=== PATIENT | female | born 1965 | race Caucasian/White ===

== ENCOUNTER 2021-11-19 20:36 | Inpatient (IN) | payer OTHER, SELFPAY ==
[2021-11-19 20:38] VITALS: BP 209/113; PULSE 91; RESP 18; TEMP 36.8; O2SAT 94; BMI 31.3
--- NOTE | 2021-11-19 21:41 | ED_ITS ---
HPI - General Adult General: Chief complaint: Nausea/Vomiting/Diarrhea Stated complaint: N/V Time Seen by Provider: 11/19/21 21:35 History of Present Illness: Patient is a 66-year-old female history gastroparesis, daily marijuana use presenting to the emergency room with complaints of nausea/vomiting and diarrhea since this morning. Patient tells me that she has been having nonstop vomiting diffuse abdominal pain and diarrhea since this morning. Patient says that this is very similar to her previous diagnosis of gastroparesis flare when. Patient also reports chills. Patient denies any cough, runny nose sore throat, chest pain or shortness of breath. Onset:earlier today Duration:ongoing Location:home Severity:moderate Associated symptoms: Reports nausea and vomiting; Deny chest pain, dyspnea, rash or palpitations Review of Systems Const: Reports: chills; Denies: fever(s) Eyes: Denies: change in vision ENMT: Denies: mouth pain Card: Denies: chest pain or palpitations Resp: Denies: dyspnea or non-productive cough GI: Reports: abdominal pain, nausea, vomiting and diarrhea : Denies: dysuria Musc: Denies: extremity pain Skin/Breast: Denies: rash or new lesions Neuro: Denies: weakness in extremities Psych: Reports: other (Normal mood) Abdulaziz/Lymph: Denies: easy bruising PFS ED PFSH: Medical History (Updated 11/22/21 @ 00:01 by ) Gastroparesis Social History Smoking and tobacco status: never smoked Alcohol intake: never Physical Exam Const: COMMON NORMALS: alert HENMT: COMMON NORMALS: atraumatic HEAD & SCALP: atraumatic MOUTH: moist mucous membranes abnormal Eye: COMMON NORMALS: EOMs intact bilaterally and conjunctivae normal CONJUNCTIVA: Yes conjunctivae normal Neck/C-Spine: COMMON NORMALS: full ROM and supple Resp: COMMON NORMALS: normal respiratory effort and clear to auscultation bilaterally AUSCULTATION: clear to auscultation bilaterally Cardio: COMMON NORMALS: regular rate RATE: regular rate GI: COMMON NORMALS: Soft to palpation and non-tender PALPATION: Yes Soft to palpation OTHER: No focal TTP. NO guarding rebound, guarding, rigidity. No CVA tenderness to percussion. Neg Barron/Neg McBurney's point tenderness, no suprabupic tenderness to palpation. Extremity: COMMON NORMALS: full ROM Neuro: SENSORIUM/ORIENTATION: Yes alert MOTOR EXAM: No Abnormal motor strength present and Other motor observations present (no focal motor deficits) Psych: COMMON NORMALS: speech normal SPEECH: Yes normal speech MOOD & AFFECT: Yes euthymic mood Course Vital Signs: Vital signs: Vital Signs Temperature 97.6 F 11/21/21 15:02 Pulse Rate 63 11/21/21 15:02 Respiratory Rate 18 11/21/21 15:02 Blood Pressure 126/67 11/21/21 15:02 Pulse Oximetry 98 11/21/21 15:02 Oxygen Delivery Me thod 11/21/21 12:00 MDM - General Adult Medical Decision Making Patient is a 66-year-old female with history of gastroparesis presenting to the emergency room for concerns of nausea/vomiting abdominal pain and diarrhea. On physical exam, patient does not have any focal tenderness palpation. Patient is noted to be dry and in mild distress. Hemodynamically stable. No guarding no rebound tenderness. Patient is noted to have a white count 6.8. Patient is hemoconcentrated 16.7. Patient received 2 L of fluid, Zofran and Reglan and still continues to complains of symptoms of nausea and inability to tolerate p.o. COVID antigen pending. CT scan pending. Disposition: admission Lab Data : 11/21/21 07:58 11/21/21 10:06 Radiology Impressions Abdomen/Pelvis CT 11/19/21 22:29 IMPRESSION: The images are degraded due to motion artifact. Within this limitation: 1. Distended stomach containing fluid with air-fluid level. Thickening of the reed of the pylorus. 2. Thickening of the reed of the colon can be seen with colitis in the appropriate clinical setting. 3. Mild hepatomegaly and fatty changes of the liver. 4. Vascular atherosclerosis. 5. Spondylosis. COMMENTS: Consistent with the [employer]'s Incidental Findings Committee white paper (J Am Chapis Radiol 2018): Any incidental renal lesion less than 1 cm or classified as too small to characterize, or any incidental cystic renal lesion characterized as simple-appearing, is likely benign. No follow-up imaging is recommended for these lesions per consensus recommendations based on imaging criteria. Laboratory Results WBC 6.8 10^3/uL (4.0-10.0) 07/25/22 21:47 RBC 5.35 10^6/uL (4.1-5.3) H 11/19/21 21:47 Hgb 16.7 g/dL (11.5-15.3) H 11/19/21 21:47 Hct 47.5 % (37.0-47.0) H 11/19/21 21:47 MCV 88.8 fl (81-99) 11/19/21 21:47 MCH 31.2 pg (28.0-34.0) 11/19/21 21:47 MCHC 35.2 g/dL (30.0-36.0) 11/19/21 21:47 RDW 12.7 % (12.1-15.1) 11/19/21 21:47 Plt Count 122 10^3/cmm (130-400) L 11/19/21 21:47 MPV 11.2 fL (7.4-10.4) H 11/19/21 21:47 Neut % (Auto) 84.7 % 11/19/21 21:47 Lymph % (Auto) 11.5 % 11/19/21 21:47 [place] % (Auto) 2.8 % 11/19/21 21:47 Eos % (Auto) 0.3 % 11/19/21 21:47 Baso % (Auto) 0.3 % 11/19/21 21:47 Neut # (Auto) 5.72 10^3/uL (1.8-7.7) 11/19/21 21:47 Lymph # (Auto) 0.8 10^3/uL (0.8-4.8) 11/19/21 21:47 [place] # (Auto) 0.2 10^3/uL (0.2-0.9) 11/19/21 21:47 Eos # (Auto) 0.0 10^3/uL (0.0-0.8) 11/19/21 21:47 Baso # (Auto) 0.0 10^3/uL (0.0-0.1) 11/19/21 21:47 Nucleated RBC % (auto) 0 % 11/19/21 21: Nucleated RBCs # 0.0 /100WBC 11/19/21 21:47 Sodium 141 mmol/L (136-145) 11/19/21 21:47 Potassium 4.2 mmol/L (3.5-5.1) 11/19/21 21:47 Chloride 104 mmol/L (98-107) 11/19/21 21:47 Carbon Dioxide 22 mmol/L (22-29) 11/19/21 21:47 Anion Gap 19.2 (5-19) H 11/19/21 21:47 BUN 18 mg/dL (8-23) 11/19/21 21:47 Creatinine 0.6 mg/dL (0.5-0.9) 11/19/21 21:47 GFR Calculation 99.7 mL/min (90-130) 11/19/21 21:47 Glucose 290 mg/dL (65-115) H 11/19/21 21:47 Calculated Osmolality 305 mOsm/kg (285-295) H 11/19/21 21:47 Calcium 9.7 mg/dL (8.5-10.5) 11/19/21 21:47 Total Bilirubin 1.1 mg/dL (0.15-1.2) 11/19/21 21:47 AST 27 U/L (0-32) 11/19/21 21:47 ALT 34 U/L (0-33) H 11/19/21 21:47 Alkaline Phosphatase 90 IU/L (35-105) 11/19/21 21:47 Troponin T Baseline 24 ng/L (0-10) H 11/20/21 00:58 Total Protein 7.3 g/dL (6.6-8.7) 11/19/21 21:47 Albumin 5.2 g/dL (3.5-5.2) 11/19/21 21:47 Globulin 2.1 g/dL (1.3-4.6) 11/19/21 21:47 Lipase 16 U/L (13-60) 11/19/21 21:47 Urine Color Yellow (Yellow) 11/19/21 22:25 Urine Appearance Sl hazy (CLEAR) 11/19/21 22:25 Urine pH 6 (5-7) 11/19/21 22:25 Ur Specific [place] 1.020 (1.005-1.030) 11/19/21 22:25 Urine Protein Neg (Negative) 11/19/21 22:25 Urine Glucose (UA) 4+ (Normal) H 11/19/21 22:25 Urine Ketones 2+ (Negative) H 11/19/21 22:25 Urine Blood 2+ (Negative) H 11/19/21 22:25 Urine Nitrate Positive (Negative) H 11/19/21 22:25 Urine Bilirubin Neg (Negative) 11/19/21 22:25 Urine Urobilinogen Norm mg/dL (Negative) 11/19/21 22:25 Ur Leukocyte Esterase Negative (Negative) 11/19/21 22:25 Urine RBC 0-4 /hpf (0-2) H 11/19/21 22:25 Urine WBC 0-4 /hpf (0-5) H 11/19/21 22:25 Ur Squamous Epith Cells 0-4 /hpf (0-5) H 11/19/21 22:25 Amorphous Sediment Not Reportable 11/19/21 22:25 Urine Bacteria 4+ /hpf (NONE) H 11/19/21 22:25 SARS-CoV-2 Ag (Rapid) Negative (Negative) 11/19/21 23:40 Discharge Plan Discharge Patient Disposition: Placed in Observation Admit Provider: Beatrice Jaquez Clinical Impression: Nausea & vomiting, Diarrhea, Acute cystitis, Hypertension Discharge Diet: Advance as tolerated Discharge Activity: Increase activity as tolerated Coding Level of Care Code ED Media Consultant Outside Sales for Chg Fwd Exam Comprehensive
[2021-11-19] MEDS: ondansetron 2 mg/ML SDV 2 mL 4 MG IVP (21:45)
[2021-11-19] MEDS: sodium chloride 0.9% 1,000 ML 999 ML IV ×2 (21:45→23:47)
[2021-11-19 21:55] LABS: Basophils % 0.3 %; Eosinophils % 0.3 %; Hematocrit 47.5 % (37.0-47.0); Hemoglobin 16.7 g/dL (11.5-15.3); Lymphocytes # 0.8 10^3/uL (0.8-4.8); Lymphocytes % 11.5 %; Mean Corpuscular HGB Conc 35.2 g/dL (30.0-36.0); Mean Corpuscular Hemoglobin 31.2 pg (28.0-34.0); Mean Corpuscular Volume 88.8 fl (81-99); Mean Platelet Volume 11.2 fL (7.4-10.4); Monocytes # 0.2 10^3/uL (0.2-0.9); Monocytes % 2.8 %; Neutrophils # 5.72 10^3/uL (1.8-7.7); Neutrophils % 84.7 %; Nucleated Red Blood Cells % 0 %; Platelet Count 122 10^3/cmm (130-400); Red Blood Count 5.35 10^6/uL (4.1-5.3); Red Cell Distribution Width 12.7 % (12.1-15.1); White Blood Count 6.8 10^3/uL (4.0-10.0)
[2021-11-19 22:22] LABS: Alanine Aminotransferase 34 U/L (0-33); Albumin Level 5.2 g/dL (3.5-5.2); Alkaline Phosphatase 90 IU/L (35-105); Anion Gap 19.2 (5-19); Aspartate Amino Transferase 27 U/L (0-32); Blood Urea Nitrogen 18 mg/dL (8-23); Calcium 9.7 mg/dL (8.5-10.5); Carbon Dioxide 22 mmol/L (22-29); Chloride 104 mmol/L (98-107); Globulin 2.1 g/dL (1.3-4.6); Glomerular Filtration Rate 99.7 mL/min (90-130); Glucose 290 mg/dL (65-115); Lipase 16 U/L (13-60); Osmolality Calculated 305 mOsm/kg (285-295); Potassium 4.2 mmol/L (3.5-5.1); Sodium 141 mmol/L (136-145); Total Bilirubin 1.1 mg/dL (0.15-1.2); Total Protein 7.3 g/dL (6.6-8.7)
--- NOTE | 2021-11-19 22:29 | CTR_ITS ---
PROCEDURE INFORMATION: Exam: CT Abdomen And Pelvis With Contrast Exam date and time: 11/19/2021 10:51 PM Age: 66 years old Clinical indication: Pain and condition or disease; Other: Gastroparesis; Abdominal pain; Prior surgery; Surgery date: 6+ months; Surgery type: Gb; Additional info: Diffuse abd, HX of gastroparesis TECHNIQUE: Imaging protocol: Computed tomography of the abdomen and pelvis with contrast. Radiation optimization: All CT scans at this facility use at least one of these dose optimization techniques: automated exposure control; mA and/or kV adjustment per patient size (includes targeted exams where dose is matched to clinical indication); or iterative reconstruction. Contrast material: OMNIPAQUE 350; Contrast volume: 90 ml; Contrast route: INTRAVENOUS (IV); COMPARISON: No relevant prior studies available. RADIATION DOSE METRICS: Total DLP (mGy-cm): 1135.09 FINDINGS: Lungs: The imaged portions of the lungs appear grossly clear. Suspected minimal background emphysema. No pleural effusion. Heart: The imaged portions of the heart appear grossly unremarkable. No pericardial effusion. Mediastinal space: Patulous lower esophagus with suspected small hiatal hernia. Liver: There are fatty changes of the liver. Mild hepatomegaly. No hepatic focal lesions. No intrahepatic or significant extrahepatic biliary duct dilation. Gallbladder and bile ducts: The gallbladder has been surgically removed. Pancreas: The pancreas appears grossly unremarkable. Spleen: The spleen appears grossly unremarkable. Adrenal glands: Mild thickening of the left adrenal gland. The adrenal glands appear otherwise grossly unremarkable. Kidneys and ureters: Small exophytic cyst in the right kidney. No hydronephrosis. No calcified renal stones. Stomach and bowel: The stomach contains foot particles and fluid with air-fluid level. Mild thickening of the gastric wall near the pylorus. The small bowel contains fluid. No small bowel obstruction. The large bowel contains fecal matter and gasses. Scattered colonic diverticula without CT evidence of acute diverticulitis. Mild thickening of the large bowel reed, particularly in the sigmoid region can represent colitis in the appropriate clinical setting. Appendix: No evidence of appendicitis. Intraperitoneal space: Unremarkable. No free air. No significant fluid collection. Vasculature: Unremarkable. No abdominal aortic aneurysm. Lymph nodes: Unremarkable. No enlarged lymph nodes. Urinary bladder: There are bladder is distended and appears grossly unremarkable. Reproductive: The torus and adnexa appear grossly unremarkable. Bones/joints: Advanced degenerative changes of the lumbosacral spine. Suspected multilevel spinal canal stenosis and neural foraminal stenosis with associated advanced advanced arthropathy are suspected. Evaluation is however limited due to significant motion artifacts. There are degenerative changes of the SI joints. Soft tissues: Unremarkable. Other findings: The images are degraded due to motion artifacts. Within this limitation: CT/CT abdomen pelvis w con* [id number] IMPRESSION: The images are degraded due to motion artifact. Within this limitation: 1. Distended stomach containing fluid with air-fluid level. Thickening of the reed of the pylorus. 2. Thickening of the reed of the colon can be seen with colitis in the appropriate clinical setting. 3. Mild hepatomegaly and fatty changes of the liver. 4. Vascular atherosclerosis. 5. Spondylosis. COMMENTS: Consistent with the [employer]'s Incidental Findings Committee white paper (J Am Chapis Radiol 2018): Any incidental renal lesion less than 1 cm or classified as too small to characterize, or any incidental cystic renal lesion characterized as simple-appearing, is likely benign. No follow-up imaging is recommended for these lesions per consensus recommendations based on imaging criteria.
[2021-11-19] MEDS: metoclopramide 5 mg/mL SDV 2 mL IVP (22:37)
[2021-11-19 22:49] LABS: Add Urine Microscopic? YES; Bilirubin Urine Neg (Negative); Blood Urine 2+ (Negative); Glucose Urine UA 4+ (Normal); Ketones Urine 2+ (Negative); Leukocyte Esterase Urine Negative (Negative); Nitrate Urine Positive (Negative); Protein Urine Neg (Negative); Urine Appearance SL Hazy (CLEAR); Urine Color Yellow (Yellow); Urobilinogen Urine Norm (Negative); pH Urine 6 (5-7)
[2021-11-19 22:50] LABS: Add Urine Culture? Yes; Bacteria Urine 4+ /hpf; RBC Urine 0-4 /hpf (0-2); Squamous Epithelial Cell Urine 0-4 /hpf (0-5); WBC Urine 0-4 /hpf (0-5)
[2021-11-19] MEDS: iohexol 350 mg/mL 100 mL Btl IV (22:56)
[2021-11-19] MEDS: ketorolac 30 mg/mL INJ IVP (23:05)
[2021-11-19] MEDS: cefTRIAXone 1,000 MG in sodium chloride 0.9% (plus) 50 ML 100 MG IV (23:06)
[2021-11-19 23:16] VITALS: BP 205/92; PULSE 68; O2SAT 100
[2021-11-20] VITALS (8 sets, daily range): BP systolic 170–212; BP diastolic 62–96; PULSE 63–89; RESP 16–20; TEMP 36.5–37.4; O2SAT 97–100
[2021-11-20 00:09] LABS: SARS Covid-2 Antigen Negative (Negative)
[2021-11-20] MEDS: haloperidol inj 5 mg/mL INJ 1 mL IM (00:52)
[2021-11-20] MEDS: hyDRALAzine 20 mg/mL INJ 1 mL 10 MG IVP (01:05)
[2021-11-20 01:30] LABS: Troponin(5th) Baseline 24 ng/L (0-10)
--- NOTE | 2021-11-20 01:59 | PC.NURSE ---
Upon admission pt unable to name her home medications or pharmacy.
[2021-11-20] MEDS: labetalol 5 mg/mL SDV 20mL 10 MG IVP (02:22)
--- NOTE | 2021-11-20 02:45 | ECG_ITS ---
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 Measurements Intervals [place] Rate: 80 P: 42 WI: 187 QRS: 46 QRSD: 88 T: 65 QT: 382 QTc: 443 Interpretive Statements SINUS RHYTHM WITH MARKED SINUS ARRHYTHMIA SEPTAL MYOCARDIAL INFARCTION , OF INDETERMINATE AGE [40+ ms Q WAVE IN V1/V2] No previous ECG available for comparison Electronically Signed On 11-21-2021 16:31:37 CDT by Satnam Patel M.D. [id number]
--- NOTE | 2021-11-20 02:48 | PC.NURSE ---
Thom RT made aware of pt needing EKG
--- NOTE | 2021-11-20 04:04 | P.HP_ITS ---
Providers/Chief Complaint Admitting Physician: Beatrice Jaquez MD Chief Complaint: N/V History of Present Illness Ana Maria Hale is a 66 year old female with a past medical history of diabetes, insulin-dependent and hypertension, known gastroparesis presenting today with multiple episodes of vomiting, and 7-8 episodes of diarrhea. C omplains of nausea and abdominal pain present. Denies any fever chills. Denies any URI symptoms cough etc. CT of the abdomen performed in the ER shows evidence of distended dilated stomach. Additionally noted to have blood pressure of 212 systolic, not currently relieved after receiving IV push of hydralazine. Review of Systems General: Reports: 10 or more systems reviewed and unremarkable except in HPI and below Const: Denies: fever(s), chills or body aches Eyes: Denies: change in vision, blurry vision or photophobia ENMT: Reports: hoarseness; Denies: throat pain, enlarged tonsils, odynophagia or nasal congestion Card: Denies: chest pain, palpitations, irregular heart rhythm, edema, sw elling of feet/ankles, lightheadedness, pre-syncope, dyspnea on exertion or orthopnea Resp: Denies: dyspnea, productive cough, non-productive cough, wheezing, stridor, pain on inspiration, change in phlegm color, hemoptysis or chest congestion GI: Denies: abdominal pain, nausea, vomiting, hematemesis, coffee ground emesis, dysphagia, heartburn, diarrhea, constipation, GI cramping, change in stool character, hematochezia or melena : Denies: flank pain, difficulty voiding, dysuria, urinary frequency, urin [place] urgency, urinary hesitancy or hematuria Musc: Denies: neck pain, back pain, extremity pain, joint swelling, joint warmth or deformity Neuro: Denies: headache(s), numbness in extremities, weakness in extremities, sensory changes, difficulty walking, frequent falls, dizziness, vertigo, behavioral changes, Slurred speech present or seizure-like activity Psych: Denies: anxiety, depression, suicidal ideation or homicidal ideation Endo: Denies: polyuria, polydipsia, tired all the time, cold intolerance or hot flashes Abdulaziz/Lymph: Denies: easy bruising or easy bleeding Medications/Allergies Allergies Allergy/AdvReac Type Severity Reaction Status Date / Time dicyclomine [From Bentyl] Allergy ALGY-Rash Verified 11/20/21 01:29 PFSH Acute PFSH: Medical History (Updated 11/20/21 @ 07:42 by Beatrice Jaquez MD) Gastroparesis Social History Smoking and tobacco status: never smoked Alcohol intake: never Substance/Drug Use: current Other substance/drug use details: +marijuana Vitals/I&O/Wt Last Vital Signs Temp 98.3 F 11/19/21 20:38 Pulse 76 11/20/21 02:13 Resp 20 H 11/20/21 01:18 BP 212/91 11/20/21 01:18 Pulse Ox 99 11/20/21 01:18 11/19/21 11/19/21 11/20/21 14:59 22:59 06:59 Intake Total 0 / 2050 Output Total 400 / 400 Balance 1650 / 1650 Weight last 48 hrs Weight 105.687 kg Weight 90.718 kg Physical Exam Narrative: GEN: Awake, alert and oriented, no acute distress CVS: S1S2 N RS: CTA B/L Abd: Soft, nt/nd , bs+ 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 Within this limitation: 1. Distended stomach containing fluid with air-fluid level. Thickening of the reed of the pylorus. 2. Thickening of the reed of the colon can be seen with colitis in the appropriate clinical setting. 3. Mild hepatomegaly and fatty changes of the liver. 4. Vascular atherosclerosis. 5. Spondylosis. COMMENTS: Consistent with the [employer]'s Incidental Findings Committee white paper (J Am Chapis Radiol 2018): Any incidental renal lesion less than 1 cm or classified as too small to characterize, or any incidental cystic renal lesion characterized as simple-appearing, is likely benign. No follow-up imaging is recommended for these lesions per consensus recommendations based on imaging criteria. Laboratory Results WBC 6.8 10^3/uL (4.0-10.0) 11/19/21 21:47 RBC 5.35 10^6/uL (4.1-5.3) H 11/19/21 21:47 Hgb 16.7 g/dL (11.5-15.3) H 11/19/21 21:47 Hct 47.5 % (37.0-47.0) H 11/19/21 21:47 MCV 88.8 fl (81-99) 11/19/21 21:47 MCH 31.2 pg (28.0-34.0) 11/19/21 21:47 MCHC 35.2 g/dL (30.0-36.0) 11/19/21 21:47 RDW 12.7 % (12.1-15.1) 11/19/21 21:47 Plt Count 122 10^3/cmm (130-400) L 11/19/21 21:47 MPV 11.2 fL (7.4-10.4) H 11/19/21 21:47 Neut % (Auto) 84.7 % 11/19/21 21:47 Lymph % (Auto) 11.5 % 11/19/21 21:47 [place] % (Auto) 2.8 % 11/19/21 21:47 Eos % (Auto) 0.3 % 11/19/21 21:47 Baso % (Auto) 0.3 % 11/19/21 21:47 Neut # (Auto) 5.72 10^3/uL (1.8-7.7) 11/19/21 21:47 Lymph # (Auto) 0.8 10^3/uL (0.8-4.8) 11/19/21 21:47 [place] # (Auto) 0.2 10^3/uL (0.2-0.9) 11/19/21 21:47 Eos # (Auto) 0.0 10^3/uL (0.0-0.8) 11/19/21 21:47 Baso # (Auto) 0.0 10^3/uL (0.0-0.1) 11/19/21 21:47 Nucleated RBC % (auto) 0 % 11/19/21 21:47 Nucleated RBCs # 0.0 /100WBC 11/19/21 21:47 Sodium 141 mmol/L (136-145) 11/19/21 21:47 Potassium 4.2 mmol/L (3.5-5.1) 11/19/21 21:47 Chloride 104 mmol/L (98-107) 11/19/21 21:47 Carbon Dioxide 22 mmol/L (22-29) 11/19/21 21:47 Anion Gap 19.2 (5-19) H 11/19/21 21:47 BUN 18 mg/dL (8-23) 11/19/21 21:47 Creatinine 0.6 mg/dL (0.5-0.9) 11/19/21 21:47 GFR Calculation 99.7 mL/min (90-130) 11/19/21 21:47 Glucose 290 mg/dL (65-115) H 11/19/21 21:47 Calculated Osmolality 305 mOsm/kg (285-295) H 11/19/21 21:47 Calcium 9.7 mg/dL (8.5-10.5) 11/19/21 21:47 Total Bilirubin 1.1 mg/dL (0.15-1.2) 11/19/21 21:47 AST 27 U/L (0-32) 11/19/21 21:47 ALT 34 U/L (0-33) H 11/19/21 21:47 Alkaline Phosphatase 90 IU/L (35-105) 11/19/21 21:47 Troponin T Baseline 24 ng/L (0-10) H 11/20/21 00:58 Total Protein 7.3 g/dL (6.6-8.7) 11/19/21 21:47 Albumin 5.2 g/dL (3.5-5.2) 11/19/21 21:47 Globulin 2.1 g/dL (1.3-4.6) 11/19/21 21:47 Lipase 16 U/L (13-60) 11/19/21 21:47 Urine Color Yellow (Yellow) 11/19/21 22:25 Urine Appearance Sl hazy (CLEAR) 11/19/21 22:25 Urine pH 6 (5-7) 11/19/21 22:25 Ur Specific [place] 1.020 (1.005-1.030) 11/19/21 22:25 Urine Protein Neg (Negative) 11/19/21 22:25 Urine Glucose (UA) 4+ (Normal) H 11/19/21 22:25 Urine Ketones 2+ (Negative) H 11/19/21 22:25 Urine Blood 2+ (Negative) H 11/19/21 22:25 Urine Nitrate Positive (Negative) H 11/19/21 22:25 Urine Bilirubin Neg (Negative) 11/19/21 22:25 Urine Urobilinogen Norm mg/dL (Negative) 11/19/21 22:25 Ur Leukocyte Esterase Negative (Negative) 11/19/21 22:25 Urine RBC 0-4 /hpf (0-2) H 11/19/21 22:25 Urine WBC 0-4 /hpf (0-5) H 11/19/21 22:25 Ur Squamous Epith Cells 0-4 /hpf (0-5) H 11/19/21 22:25 Amorphous Sediment Not Reportable 11/19/21 22:25 Urine Bacteria 4+ /hpf (NONE) H 11/19/21 22:25 SARS-CoV-2 Ag (Rapid) Negative (Negative) 11/19/21 23:40 A&P Assessment and plan (1) Gastroparesis: Patient with history of diabetes mellitus and known gastroparesis presenting with multiple episodes of nausea vomiting and diarrhea. Findings may be related to gastroparesis. As needed Zofran, and Reglan if needed. Check stool C. difficile and bacterial PCR panel given diarrhea. Status: Acute (2) UTI (urinary tract infection): Ceftriaxone 1 g IV every 24 hours empirically Await urine culture CT abdomen without evidence of obstructive process. Status: Acute (3) Hypertension: Systolic blood pressure greater than 2 oh 12 upon presentation, not adequately relieved with hydralazine. Ordered labetalol 10 mg IV push and started on amlodipine 10 mg p.o. daily. Patient takes medications at home, however does not recall names of her medication at this present time. Check troponin series to evaluate for possible ACS given intractable vomiting and elevated blood pressure, EKG without acute ST-T wave changes at this time Status: Acute (4) Diabetes: Patient states she takes insulin at home, however unable to tell me dose right now. Will start on medium dose sliding scale for now and titrate as needed. Status: Acute Attestations 2 Medical Necessity Statement*: Anticipate greater than 2 midnight admission for management of gastroparesis, intractable nausea vomiting uncontrolled hypertensi on, IV hydration Coding Level of Care Code Acute Human Resources Benefits Coordinator for [facility] Fw Diagnoses Gastroparesis K31.84 UTI (urinary tract infection) N39.0 Hypertension I10 Diabetes E11.9
[2021-11-20] MEDS: sodium chloride 0.9% 1,000 ML 75 ML IV ×2 (04:32→17:17)
--- NOTE | 2021-11-20 06:45 | ECG_ITS ---
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 Measurements Intervals [place] Rate: 85 P: 42 [place]: 171 QRS: 30 QRSD: 101 T: 61 QT: 390 QTc: 465 Interpretive Statements SINUS RHYTHM WITH MARKED SINUS ARRHYTHMIA LEFT ATRIAL ENLARGEMENT [-0.15mV P-WAVE IN V1/V2] MODERATE ST DEPRESSION [0.05+ mV ST DEPRESSION] Compared to ECG 11/20/2021 03:01:15 Atrial abnormality now present ST (T wave) deviation now present Myocardial infarct finding no longer present Electronically Signed On 11-20-2021 12:10:10 CDT by Sujatha Allen M.D. [id number]
[2021-11-20] MEDS: amlodipine 10 mg Tablet PO (08:10)
[2021-11-20] MEDS: pantoprazole DR 40 mg Tablet PO (08:10)
[2021-11-20 08:15] LABS: Glucose Point of Care 252 mg/dL (70-110)
[2021-11-20] MEDS: insulin lispro 100 unit/1 mL SUBCUT ×4 (08:16→21:19)
--- NOTE | 2021-11-20 10:34 | PC.CHAP ---
Pastoral Care Encounter/Spiritual Assessment Type of Contact [] Declined wealth management consultant visit [] Patient/Family/Request visit [] Outpatient visit [] Follow-up visit [] Physician referral [] Code/Alert [x] Routine visit [] Staff referral [] Actively dying [x] Patient sleeping [] Family support [] [] Out of room [] Palliative care [] [] Receiving care in room [] Pre-surgical visit [] Trauma [] Long length of stay [] ICU visit [] Other: Relational/Emotional Strength [] Patient feels connected with others/family/visitors/staff [] Distress [] Loneliness/isolation [] Abandonment Spirituality of Patient [] Person of Veronique [] Attends Hindu of their Veronique [] Believes in Prayer [] Reads Bible or Sabianist materials [] There are Spiritual issues to be addressed Prototype Deicer Assembler Interventions [] Prayer [] Active listening [] Non-anxious presence [] Spiritual/emotional support [] Crisis/trauma care [] Spiritual counseling [] Bereavement support [] Provided bereavement packet [] Provided Bible/devotional materials [] Provided toy/stuffed animal, coloring book to patient or family member [] Provided Communion [] Anointing/[place] [] Salvation [] Completed spiritual assessment [] Other: Impact on Illness or Injury [] Angry [] Fearful [] Anxious [] Often cries [] Exhaustion [] Unable to work [] Unable to attend judaism [] Unable to walk/stand [] Unable to read [] Unable to drive [] Unable to eat/drink [] Unable to sleep [] Unable to be with family [] Patient intubated [] Other: Summary Time spent with patient
[2021-11-20] MEDS: hyDRALAzine 25 mg Tablet PO ×2 (10:45→17:18)
[2021-11-20 10:51] LABS: Glucose Point of Care 212 mg/dL (70-110)
--- NOTE | 2021-11-20 16:17 | P.PN_ITS ---
Subjective Subjective: Patient was seen this morning, she tells me that she feels overall better, no nausea episodes, has not had a bowel movement Vitals/I&O/Wt Last Vital Signs Temp 97.7 F 11/20/21 12:00 Pulse 87 11/20/21 14:00 Resp 17 11/20/21 12:00 BP 181/74 11/20/21 12:00 Pulse Ox 100 11/20/21 12:00 11/20/21 11/20/21 11/20/21 06:59 14:59 22:59 Intake Total 0 / 0 240 / 240 Output Total 750 / 750 1500 / 1500 Balance 1300 / 1300 -1260 / -1260 Weight last 48 hrs Weight 105.687 kg Weight 90.718 kg Physical Exam Const: COMMON NORMALS: no acute distress and patient oriented x3 Resp: COMMON NORMALS: normal respiratory effort, No retractions, No use of accessory muscles and clear to auscultation bilaterally AUSCULTATION: clear to auscultation bilaterally Cardio: COMMON NORMALS: regular rate, regular rhythm, S1 normal heart sound present and S2 normal heart sound present RATE: regular rate RHYTHM: regular rhythm HEART SOUNDS: S1 normal heart sound present and S2 normal heart sound present GI: COMMON NORMALS: Normal to inspection, nondistended, normoactive bowel sounds present, Soft to palpation, non-tender and No hepatosplenomegaly present PALPATION: Yes Soft to palpation and Yes No hepatosplenomegaly present Extremity: COMMON NORMALS: no pedal edema Neuro: COMMON NORMALS: patient oriented x3 Psych: COMMON NORMALS: mental status grossly normal Data : 11/19/21 21:47 11/19/21 21:47 A&P Assessment and plan (1) Gastroparesis: Patient with history of diabetes mellitus and known gastroparesis presenting with multiple episodes of nausea vomiting and diarrhea. Findings may be related to gastroparesis. As needed Zofran, and Reglan if needed. Check stool C. difficile and bacterial PCR panel given diarrhea. Advance to clear liquids Status: Acute (2) UTI (urinary tract infection): Ceftriaxone 1 g IV every 24 hours empirically Await urine culture CT abdomen without evidence of obstructive process. Status: Acute (3) Hypertension: Systolic blood pressure greater than 2 oh 12 upon presentation, not adequately relieved with hydralazine. Ordered labetalol 10 mg IV push and started on amlodipine 10 mg p.o. daily. Patient takes medications at home, however does not recall names of her medication at this present time. Check troponin series to evaluate for possible ACS given intractable vomiting and elevated blood pressure, EKG without acute ST-T wave changes at this time -Labs hydralazine -We will add lisinopril Status: Acute (4) Diabetes: Patient states she takes insulin at home, however unable to tell me dose right now. Will start on medium dose sliding scale for now and titrate as needed. 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
--- NOTE | 2021-11-20 16:19 | ECG_ITS ---
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 Measurements Intervals [place] Rate: 80 P: 26 [place]: 165 QRS: 7 QRSD: 98 T: 32 QT: 342 QTc: 394 Interpretive Statements SINUS RHYTHM LEFT ATRIAL ENLARGEMENT [-0.15mV P-WAVE IN V1/V2] NONSPECIFIC ST & T-WAVE ABNORMALITY Compared to ECG 11/20/2021 05:44:13 T-wave abnormality now present Sinus arrhythmia no longer present ST (T wave) deviation no longer present Electronically Signed On 11-20-2021 21:30:42 CDT by Sujatha Allen M.D. [id number]
[2021-11-20 17:06] LABS: Glucose Point of Care 213 mg/dL (70-110)
[2021-11-20] MEDS: lisinopril 10 mg Tablet PO (17:18)
[2021-11-20 18:27] LABS: Troponin(5th) Baseline 27 ng/L (0-10)
[2021-11-20 20:12] LABS: Glucose Point of Care 186 mg/dL (70-110)
--- NOTE | 2021-11-20 21:05 | PC.NURSE ---
Pt and spouse had questions about dx and treatment. This RN educated pt on diabetes controll with diet, exercise, and controlling blood sugars with medications. Print out from care notes of gastroparesis given and discussed. This RN encouraged spouse to be present tomorrow during rounds with the physician. Both verbalized understanding of education and able to teach back.
--- NOTE | 2021-11-20 22:19 | ECG_ITS ---
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 Measurements Intervals [place] Rate: 72 P: 25 [place]: 164 QRS: 0 QRSD: 97 T: 32 QT: 462 QTc: 509 Interpretive Statements SINUS RHYTHM POSSIBLE LEFT ATRIAL ENLARGEMENT [-0.1mV P-WAVE IN V1/V2] POSSIBLE ANTERIOR MYOCARDIAL INFARCTION , OF INDETERMINATE AGE [30 ms Q WAVE IN V3/V4, OR R < 0.2 mV IN V4] Compared to ECG 11/20/2021 17:31:20 Myocardial infarct finding now present T-wave abnormality no longer present Electronically Signed On 11-21-2021 16:31:47 CDT by Satnam Patel M.D. [id number]
[2021-11-20] MEDS: cefTRIAXone 1,000 MG in sodium chloride 0.9% (plus) 50 ML 100 MG IV (22:26)
[2021-11-20 23:01] LABS: Troponin 5 6HR 30.89 ng/L (0-10)
[2021-11-20 23:11] LABS: Troponin 5 6HR Delta 3.89 ng/L (0-12)
[2021-11-21] VITALS: BP 145/76; PULSE 73; RESP 16; TEMP 36.9; O2SAT 96
[2021-11-21] MEDS: hyDRALAzine 25 mg Tablet PO ×2 (02:00→07:46)
[2021-11-21 04:00] VITALS: BP 138/88; PULSE 69; RESP 16; TEMP 36.4; O2SAT 97
[2021-11-21] MEDS: sodium chloride 0.9% 1,000 ML 75 ML IV (06:18)
[2021-11-21 06:22] LABS: Glucose Point of Care 204 mg/dL (70-110)
[2021-11-21] MEDS: amlodipine 10 mg Tablet PO (07:46)
[2021-11-21] MEDS: insulin lispro 100 unit/1 mL SUBCUT ×2 (07:46→11:56)
[2021-11-21] MEDS: pantoprazole DR 40 mg Tablet PO (07:46)
[2021-11-21] MEDS: lisinopril 10 mg Tablet PO (07:46)
[2021-11-21 08:00] VITALS: BP 118/74; PULSE 67; RESP 16; TEMP 36.6; O2SAT 96
[2021-11-21 08:31] LABS: Basophils % 0.3 %; Eosinophils % 0.3 %; Hemoglobin 16.4 g/dL (11.5-15.3); Lymphocytes # 1.3 10^3/uL (0.8-4.8); Lymphocytes % 20.3 %; Mean Corpuscular HGB Conc 33.5 g/dL (30.0-36.0); Mean Corpuscular Hemoglobin 31.2 pg (28.0-34.0); Mean Corpuscular Volume 93.3 fl (81-99); Mean Platelet Volume 11.4 fL (7.4-10.4); Monocytes # 0.6 10^3/uL (0.2-0.9); Monocytes % 9.8 %; Neutrophils # 4.29 10^3/uL (1.8-7.7); Nucleated Red Blood Cells % 0 %; Platelet Count 125 10^3/cmm (130-400); Red Blood Count 5.25 10^6/uL (4.1-5.3); Red Cell Distribution Width 13.1 % (12.1-15.1); White Blood Count 6.2 10^3/uL (4.0-10.0)
[2021-11-21 09:30] LABS: Slide Review Slide Review Perform
[2021-11-21 11:15] LABS: Glucose Point of Care 180 mg/dL (70-110)
[2021-11-21 11:45] LABS: Alanine Aminotransferase 29 U/L (0-33); Alkaline Phosphatase 68 IU/L (35-105); Anion Gap 15.2 (5-19); Aspartate Amino Transferase 25 U/L (0-32); Blood Urea Nitrogen 18 mg/dL (8-23); Calcium 8.9 mg/dL (8.5-10.5); Carbon Dioxide 23 mmol/L (22-29); Chloride 100 mmol/L (98-107); Glomerular Filtration Rate 99.7 mL/min (90-130); Glucose 186 mg/dL (65-115); Magnesium 2.1 mg/dL (1.7-2.3); Osmolality Calculated 287 mOsm/kg (285-295); Phosphorus 2.6 mg/dL (2.5-4.5); Potassium 3.2 mmol/L (3.5-5.1); Sodium 135 mmol/L (136-145)
[2021-11-21 12:00] VITALS: BP 126/67; PULSE 63; RESP 18; TEMP 36.4; O2SAT 98
--- NOTE | 2021-11-21 12:18 | PM.DCS ---
Discharge Providers Date of Admission: 11/20/21 04:00 Date of Discharge: November 21, 2021 Attending Provider at Admission: Beatrice Jaquez MD Attending Provider at Discharge: Ramiro Cramer MD Diagnoses at Discharge Discharge Diagnosis (1) Gastroparesis: Status: Acute (2) UTI (urinary tract infection): Status: Acute (3) Hypertension: Status: Acute (4) Diabetes: Status: Acute Reason for Visit Reason for Visit: N/V Hospital Course Hospital Course This is a 66-year-old female with a past medical history of insulin-dependent type 2 diabetes mellitus, history of diabetic gastroparesis, who presents to [facility] due to nausea, vomiting Patient was admitted to [facility] for exacerbation of her diabetic gastroparesis, managed with antiemetics, bowel rest, she clinically improved, diet advanced, she will be discharged with close follow-up with primary care, referral sent to [facility] gastroenterology, Reglan to be used sparingly for nausea vomiting to monitor for tardive dyskinesia, instructions for diabetic gastroparesis also given Patient was also found to have a UTI, discharged on Bactrim, urine cultures pending, gram-negative rods She was also found to have uncontrolled hypertension during hospitalization, required medical optimization including amlodipine 10 mg once daily, lisinopril 10 mg twice daily, hydralazine 25 mg 3 times daily follow-up with primary care provider for blood pressure check Physical Exam Const: COMMON NORMALS: no acute distress and patient oriented x3 Resp: COMMON NORMALS: normal respiratory effort, No retractions, No use of accessory muscles and clear to auscultation bilaterally AUSCULTATION: clear to auscultation bilaterally Cardio: COMMON NORMALS: regular rate, regular rhythm, S1 normal heart sound present and S2 normal heart sound present RATE: regular rate RHYTHM: regular rhythm HEART SOUNDS: S1 normal heart sound present and S2 normal heart sound present GI: COMMON NORMALS: Normal to inspection, nondistended, normoactive bowel sounds present, Soft to palpation and non-tender PALPATION: Yes Soft to palpation Extremity: COMMON NORMALS: capillary refill normal, no clubbing, cyanosis or edema and no pedal edema Neuro: COMMON NORMALS: patient oriented x3 Psych: COMMON NORMALS: mental status grossly normal Discharge Data Studies Completed and Pending Completed Studies During Hospitalization Category Date Time Status CT abdomen pelvis w con* [id number] Urgent Cat Scan 11/19/21 22:29 Completed Pending at discharge Category Date Time Status C DIFF [Clostridioides Difficile PCR] Routine Lab 11/20/21 04:00 Uncollected Complete Blood Count w/Auto AM LABS Lab 11/22/21 04:00 Ordered Complete Blood Count w/Auto AM LABS Lab 11/23/21 04:00 Ordered Enteric Bacterial Panel by PCR Routine Lab 11/20/21 20:43 Uncollected Magnesium AM LABS Lab 11/22/21 04:00 Ordered Magnesium AM LABS Lab 11/23/21 04:00 Ordered Phosphorus AM LABS Lab 11/22/21 04:00 Ordered Phosphorus AM LABS Lab 11/23/21 04:00 Ordered Urine Culture Stat Lab 11/19/21 22:25 Results Radiology Impressions Abdomen/Pelvis CT 11/19/21 22:29 IMPRESSION: The images are degraded due to motion artifact. Within this limitation: 1. Distended stomach containing fluid with air-fluid level. Thickening of the reed of the pylorus. 2. Thickening of the reed of the colon can be seen with colitis in the appropriate clinical setting. 3. Mild hepatomegaly and fatty changes of the liver. 4. Vascular atherosclerosis. 5. Spondylosis. COMMENTS: Consistent with the [place] [employer]'s Incidental Findings Committee white paper (J Am Chapis Radiol 2018): Any incidental renal lesion less than 1 cm or classified as too small to characterize, or any incidental cystic renal lesion characterized as simple-appearing, is likely benign. No follow-up imaging is recommended for these lesions per consensus recommendations based on imaging criteria. Laboratory Results WBC 6.2 10^3/uL (4.0-10.0) 11/21/21 07:58 RBC 5.25 10^6/uL (4.1-5.3) 11/21/21 07:58 Hgb 16.4 g/dL (11.5-15.3) H 11/21/21 07:58 Hct 49.0 % (37.0-47.0) H 11/21/21 07:58 MCV 93.3 fl (81-99) 11/21/21 07:58 MCH 31.2 pg (28.0-34.0) 11/21/21 07:58 MCHC 33.5 g/dL (30.0-36.0) 11/21/21 07:58 RDW 13.1 % (12.1-15.1) 11/21/21 07:58 Plt Count 125 10^3/cmm (130-400) L 11/21/21 07:58 MPV 11.4 fL (7.4-10.4) H 11/21/21 07:58 Neut % (Auto) 69.0 % 11/21/21 07:58 Lymph % (Auto) 20.3 % 11/21/21 07:58 [place] % (Auto) 9.8 % 11/21/21 07:58 Eos % (Auto) 0.3 % 11/21/21 07:58 Baso % (Auto) 0.3 % 11/21/21 07:58 Neut # (Auto) 4.29 10^3/uL (1.8-7.7) 11/21/21 07:58 Lymph # (Auto) 1.3 10^3/uL (0.8-4.8) 11/21/21 07:58 [place] # (Auto) 0.6 10^3/uL (0.2-0.9) 11/21/21 07:58 Eos # (Auto) 0.0 10^3/uL (0.0-0.8) 11/21/21 07:58 Baso # (Auto) 0.0 10^3/uL (0.0-0.1) 11/21/21 07:58 Nucleated RBC % (auto) 0 % 11/21/21 07:58 Nucleated RBCs # 0.0 /100WBC 11/21/21 07:58 Sodium 135 mmol/L (136-145) L 11/21/21 10:06 Potassium 3.2 mmol/L (3.5-5.1) L 11/21/21 10:06 Chloride 100 mmol/L (98-107) 11/21/21 10:06 Carbon Dioxide 23 mmol/L (22-29) 11/21/21 10:06 Anion Gap 15.2 (5-19) 11/21/21 10:06 BUN 18 mg/dL (8-23) 11/21/21 10:06 Creatinine 0.6 mg/dL (0.5-0.9) 11/21/21 10:06 GFR Calculation 99.7 mL/min (90-130) 11/21/21 10:06 Glucose 186 mg/dL (65-115) H 11/21/21 10:06 POC Glucose 180 mg/dL (70-110) H 11/21/21 11:07 Calculated Osmolality 287 mOsm/kg (285-295) 11/21/21 10:06 Calcium 8.9 mg/dL (8.5-10.5) 11/21/21 10:06 Phosphorus 2.6 mg/dL (2.5-4.5) 11/21/21 10:06 Magnesium 2.1 mg/dL (1.7-2.3) 11/21/21 10:06 Total Bilirubin 1.0 mg/dL (0.15-1.2) 11/21/21 10:06 AST 25 U/L (0-32) 11/21/21 10:06 ALT 29 U/L (0-33) 11/21/21 10:06 Alkaline Phosphatase 68 IU/L (35-105) 11/21/21 10:06 Troponin T Baseline 27 ng/L (0-10) H 11/20/21 17:56 Troponin T 120 Minute 27.00 ng/L (0-10) H 11/20/21 07:43 Delta Troponin T -3.0 ABS# (0-10) L 11/20/21 07:43 Troponin T Hi Sens 6Hr 30.89 ng/L (0-10) H 11/20/21 22:28 Troponin T Hi Sens 6Hr Delta 3.89 ng/L (0-12) 11/20/21 22:28 Total Protein 6.0 g/dL (6.6-8.7) L 11/21/21 10:06 Albumin 4.0 g/dL (3.5-5.2) 11/21/21 10:06 Globulin 2.0 g/dL (1.3-4.6) 11/21/21 10:06 Lipase 16 U/L (13-60) 11/19/21 21:47 Urine Color Yellow (Yellow) 11/19/21 22:25 Urine Appearance Sl hazy (CLEAR) 11/19/21 22:25 Urine pH 6 (5-7) 11/19/21 22:25 Ur Specific [place] 1.020 (1.005-1.030) 11/19/21 22:25 Urine Protein Neg (Negative) 07/25/22 22:25 Urine Glucose (UA) 4+ (Normal) H 11/19/21 22:25 Urine Ketones 2+ (Negative) H 11/19/21 22:25 Urine Blood 2+ (Negative) H 11/19/21 22:25 Urine Nitrate Positive (Negative) H 11/19/21 22:25 Urine Bilirubin Neg (Negative) 11/19/21 22:25 Urine Urobilinogen Norm mg/dL (Negative) 11/19/21 22:25 Ur Leukocyte Esterase Negative (Negative) 11/19/21 22:25 Urine RBC 0-4 /hpf (0-2) H 11/19/21 22:25 Urine WBC 0-4 /hpf (0-5) H 11/19/21 22:25 Ur Squamous Epith Cells 0-4 /hpf (0-5) H 11/19/21 22:25 Amorphous Sediment Not Reportable 11/19/21 22:25 Urine Bacteria 4+ /hpf (NONE) H 11/19/21 22:25 SARS-CoV-2 Ag (Rapid) Negative (Negative) 11/19/21 23:40 Vitals Last Vital Signs Temp 97.8 F 11/21/21 08:00 Pulse 67 11/21/21 08:00 Resp 16 11/21/21 08:00 BP 118/74 11/21/21 08:00 Pulse Ox 96 11/21/21 08:00 O2 Del Method 11/21/21 08:00 Discharge Plan Discharge Patient Disposition: Home Condition: Stable Prescriptions: New hydralazine 25 mg Tablet 25 mg PO Q8H 30 Days Qty: 90 0RF amlodipine 10 mg Tablet 10 mg PO DAILY 30 Days Qty: 30 0RF lisinopril 10 mg Tablet 10 mg PO BID 30 Days Qty: 60 0RF Bactrim DS 800-160 mg tablet 1 tab PO BID 3 Days Qty: 6 0RF Reglan 5 mg tablet 5 mg PO Q8H PRN (Reason: nausea and vomiting) 7 Days Qty: 21 0RF Rx Instructions: Do not use for more than 6 weeks Continued sucralfate 1 gram Tablet 1 g PO BIDWM Zoloft 100 mg Tablet 150 mg PO DAILY pantoprazole 40 mg Tablet,Delayed Release (Dr/Ec) 40 mg PO DAILY Humalog U-100 Insulin 100 unit/mL Solution See Rx Instructions .ROUTE .COMPLEX Rx Instructions: per sliding scale Lantus Solostar U-100 Insulin 100 unit/mL (3 mL) Insulin Pen 55 unit SUBCUT QAM Discontinued amlodipine 5 mg Tablet 5 mg PO DAILY valsartan 160 mg Tablet 160 mg PO DAILY Discharge Orders: Discharge Order (Routine); Ordered 11/21/21 Ordered By: Ramiro Cramer Referrals: Mack Conrad MD [Referring] - 1 month (Diabetic gastroparesis) Discharge Diet: Advance as tolerated Discharge Activity: Increase activity as tolerated Patient Instructions: Gastroparesis (ED), Opioid Safety Activity Restrictions/Additional Instructions: - Take antibiotics as prescribed for UTI -For diabetic gastroparesis, referral sent for document review attorney in [place] -Monitor blood sugars closely -Follow-up with primary care in 1 week -For blood pressure continue amlodipine 10 mg once daily, hydralazine 25 every 8 hours, lisinopril 10 twice daily -For diabetic gastroparesis, can use Reglan as needed for nausea, vomiting, do not use for more than 6 weeks, if you develop muscle spasms go to emergency room as this is an indicator of tardive dyskinesia Discharge Attestations Time Spent in Discharge Care*: less than 30 min Quality Metrics Clinical Quality Measures [ No reported AMI, CVA or VTE this stay] Coding Level of Care Code Acute g [facility] note Diagnoses Gastroparesis K31.84 UTI (urinary tract infection) N39.0 Hypertension I10 Diabetes E11.9
[2021-11-21 15:02] VITALS: BP 126/67; PULSE 63; RESP 18; TEMP 36.4; O2SAT 98
== END 2021-11-21 15:03 | disposition home or self-care (01) | DRG 74 ==
LOC: ER 11-20 00:52 → MEDSURG 11-20 01:38
PROVIDERS: Emergency Medicine; Admitting Provider Student in an Organized Health Care Education/Training Program; Emergency Provider Emergency Medicine; Visit Provider Family Medicine
DX: E11.43 Type 2 diabetes mellitus with diabetic autonomic (poly)neuropathy (principal); N39.0 Urinary tract infection, site not specified; K31.84 Gastroparesis; I10 Essential (primary) hypertension; Z79.4 Long term (current) use of insulin
CPT/HCPCS: 36415; 36416; 74177; 80053; 81001; 82962; 83690; 83735; 84100; 84484; 85025; 87077; 87086; 87186; 87426; 93005; 96365; 96372; 96375; 99285; J0360; J0696; J1630; J1815; J1885; J2405; J2765; J3490; J7030; Q9967

== ENCOUNTER 2021-12-22 14:21 | Emergency (ER) | payer OTHER, SELFPAY ==
[2021-12-22 14:44] VITALS: BP 199/97; PULSE 71; RESP 18; TEMP 36.9; O2SAT 98; BMI 37.5
--- NOTE | 2021-12-22 14:55 | ECG_ITS ---
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 Measurements Intervals [place] Rate: 76 P: 36 [place]: 165 QRS: 30 QRSD: 94 T: 40 QT: 376 QTc: 424 Interpretive Statements SINUS RHYTHM LEFT ATRIAL ENLARGEMENT [-0.15mV P-WAVE IN V1/V2] POSSIBLE ANTERIOR MYOCARDIAL INFARCTION , OF INDETERMINATE AGE [30 ms Q WAVE IN V3/V4, OR R < 0.2 mV IN V4] INTERPRETATION BASED ON A DEFAULT AGE OF 40 YEARS Compared to ECG 11/20/2021 22:12:20 No significant changes Electronically Signed On 12-23-2021 8:21:20 CDT by Satnam Patel M.D. [id number]
--- NOTE | 2021-12-22 15:15 | W.ED.ABDPA2 ---
HPI - Abdominal Pain General: Chief Complaint: Abdominal Pain Stated Complaint: Abd pain, pain in lower back, N/V Time Seen by Provider: 12/22/21 14:55 Source: patient Mode of arrival: ambulatory Limitations: no limitations History of Present Illness: 56 yo female with complaints of cramping abominal pain. Pain has a history of gastroparesis and is diabetis. Denies any medic easy melena hematemesis or Coffee-ground emesis, she had a normal bowel movement today. She denies any dysuria urgency or frequency. Symptoms began approximately 4 days ago. MD elicited complaint: abdominal pain Pertinent past history: none Onset (ago): day(s) Pain Consistency: constant Location: Suprapubic Severity: moderate Quality: cramping Radiation: none Exacerbating factors: nothing Relieving factors: nothing Associated Symptoms: Reports bloating, GI cramping, nausea and poor appetite; Denies anorexia, belching, change in bowel habits, change in stool character, chills, coffee ground emesis, constipation, diarrhea, dyspepsia, dysuria, excessive flatus, fever(s), heartburn, hematochezia, hematuria, hematemesis, fecal incontinence, loose stools, melena, syncope and vomiting Review of Systems Const: Denies: fever(s) or chills ENMT: Denies: throat pain, ear or mastoid pain, nasal discharge or nasal congestion Card: Denies: chest pain, palpitations or syncope Resp: Denies: dyspnea, productive cough or non-productive cough GI: Reports: abdominal pain, nausea, bloating and GI cramping; Denies: vomiting, hematemesis, coffee ground emesis, heartburn, diarrhea, constipation, belching, excessive flatus, fecal incontinence, change in bowel habits, change in stool character, hematochezia or melena : Denies: dysuria or hematuria Skin/Breast: Denies: rash or pruritus PFSH ED PFSH: Medical History (Updated 12/28/21 @ 16:58 by Xavier Monique DO) Diabetes Gastroparesis Hypertension Hypertension Social History Smoking and tobacco status: never smoked Alcohol intake: never Physical Exam Const: GENERAL APPEARANCE: cooperative and comfortable ORIENTATION/CONSCIOUSNESS: Yes awake, Yes oriented to person, Yes oriented to place and Yes oriented to time HENMT: COMMON NORMALS: normocephalic, atraumatic and hearing grossly normal bilaterally HEAD & SCALP: normocephalic and atraumatic Resp: COMMON NORMALS: normal respiratory effort, No retractions, No use of accessory muscles and clear to auscultation bilaterally AUSCULTATION: clear to auscultation bilaterally Cardio: COMMON NORMALS: regular rate, regular rhythm and No murmurs present (Cardio) RATE: regular rate RHYTHM: regular rhythm GI: COMMON NORMALS: No hepatosplenomegaly present AUSCULTATION: Yes normoactive bowel sounds PALPATION: Yes Tenderness to palpation present (GI) (Generalized suprapubic tenderness), No Guarding due to palpation present (GI) and Yes No hepatosplenomegaly present Extremity: COMMON NORMALS: normal to inspection, capillary refill normal, no clubbing, cyanosis or edema, no calf tenderness and no pedal edema Neuro: SENSORIUM/ORIENTATION: Yes oriented to person, Yes oriented to place and Yes oriented to time Skin: COMMON NORMALS: no rashes or lesions noted GENERAL SKIN EXAM: no rashes or lesions noted Course Vital Signs: Vital signs: Vital Signs Temperature 98.4 F 12/22/21 14:44 Pulse Rate 69 12/22/21 18:23 Respiratory Rate 22 H 12/22/21 15:51 Blood Pressure 169/86 12/22/21 18:23 Pulse Oximetry 98 12/22/21 18:23 Oxygen Delivery Me thod 12/22/21 14:44 MDM - Abdominal Pain Medical Decision Making Spectrum of abdominal pain precipitates from her gastroparesis. She is doing better. Will discharge home on Reglan 10 mg 4 times daily follow-up with her primary care doctor. Lab Data : 12/22/21 15:37 12/22/21 15:37 Labs/Radiology: Radiology Impressions Abdomen/Pelvis CT 12/22/21 16:58 IMPRESSION: 1. Negative for acute inflammatory process in the abdomen or pelvis. 2. Diverticulosis without diverticulitis. 3. Right kidney cyst, negative for follow-up advised. Laboratory Results WBC 6.1 10^3/uL (4.0-10.0) 12/22/21 15:37 RBC 5.09 10^6/uL (4.1-5.3) 12/22/21 15:37 Hgb 16.0 g/dL (11.5-15.3) H 12/22/21 15:37 Hct 44.6 % (37.0-47.0) 12/22/21 15:37 MCV 87.6 fl (81-99) 12/22/21 15:37 MCH 31.4 pg (28.0-34.0) 12/22/21 15:37 MCHC 35.9 g/dL (30.0-36.0) 12/22/21 15:37 RDW 12.5 % (12.1-15.1) 12/22/21 15:37 Plt Count 111 10^3/cmm (130-400) L 12/22/21 15:37 MPV 11.8 fL (7.4-10.4) H 12/22/21 15:37 Neut % (Auto) 72.0 % 12/22/21 15:37 Lymph % (Auto) 17.6 % 12/22/21 15:37 [place] % (Auto) 9.1 % 12/22/21 15:37 Eos % (Auto) 0.5 % 12/22/21 15:37 Baso % (Auto) 0.3 % 12/22/21 15:37 Neut # (Auto) 4.42 10^3/uL (1.8-7.7) 12/22/21 15:37 Lymph # (Auto) 1.1 10^3/uL (0.8-4.8) 12/22/21 15:37 [place] # (Auto) 0.6 10^3/uL (0.2-0.9) 12/22/21 15:37 Eos # (Auto) 0.0 10^3/uL (0.0-0.8) 12/22/21 15:37 Baso # (Auto) 0.0 10^3/uL (0.0-0.1) 12/22/21 15:37 Nucleated RBC % (auto) 0 % 12/22/21 15:37 Nucleated RBCs # 0.0 /100WBC 12/22/21 15:37 Sodium 141 mmol/L (136-145) 12/22/21 15:37 Potassium 3.2 mmol/L (3.5-5.1) L 12/22/21 15:37 Chloride 103 mmol/L (98-107) 12/22/21 15:37 Carbon Dioxide 24 mmol/L (22-29) 12/22/21 15:37 Anion Gap 17.3 (5-19) 12/22/21 15:37 BUN 19 mg/dL (6-20) 12/22/21 15:37 Creatinine 0.5 mg/dL (0.5-0.9) 12/22/21 15:37 GFR Calculation 127.2 mL/min (90-130) 12/22/21 15:37 Glucose 236 mg/dL (65-115) H 12/22/21 15:37 Calculated Osmolality 302 mOsm/kg (285-295) H 12/22/21 15:37 Calcium 9.8 mg/dL (8.5-10.5) 12/22/21 15:37 Total Bilirubin 0.9 mg/dL (0.15-1.2) 12/22/21 15:37 AST 29 U/L (0-32) 12/22/21 15:37 ALT 37 U/L (0-33) H 12/22/21 15:37 Alkaline Phosphatase 87 U/L (35-105) 12/22/21 15:37 Total Protein 6.8 g/dL (6.6-8.7) 12/22/21 15:37 Albumin 4.6 g/dL (3.5-5.2) 12/22/21 15:37 Globulin 2.2 g/dL (1.3-4.6) 12/22/21 15:37 Lipase 20 U/L (13-60) 12/22/21 15:37 Urine Color Yellow (Yellow) 12/22/21 15:12 Urine Appearance Sl hazy (CLEAR) 12/22/21 15:12 Urine pH 6 (5-7) 12/22/21 15:12 Ur Specific [place] 1.015 (1.005-1.030) 12/22/21 15:12 Urine Protein Neg (Negative) 12/22/21 15:12 Urine Glucose (UA) 4+ (Normal) H 12/22/21 15:12 Urine Ketones 1+ (Negative) H 12/22/21 15:12 Urine Blood Trace (Negative) H 12/22/21 15:12 Urine Nitrate Negative (Negative) 12/22/21 15:12 Urine Bilirubin Neg (Negative) 12/22/21 15:12 Urine Urobilinogen 1 mg/dL (Negative) H 12/22/21 15:12 Ur Leukocyte Esterase Negative (Negative) 12/22/21 15:12 Urine RBC 0-4 /hpf (0-2) H 12/22/21 15:12 Urine WBC 0-4 /hpf (0-5) H 12/22/21 15:12 Ur Squamous Epith Cells 0-4 /hpf (0-5) H 12/22/21 15:12 Amorphous Sediment 1+ /hpf 12/22/21 15:12 Urine Bacteria 1+ /hpf (NONE) H 12/22/21 15:12 Urine Mucus Trace /hpf 12/22/21 15:12 Discharge Plan Discharge Patient Disposition: Home Clinical Impression: Abdominal pain Condition: Stable Prescriptions: New Reglan 10 mg tablet 10 mg PO Q6H PRN (Reason: nausea and vomiting) Qty: 20 0RF No Action sucralfate 1 gram Tablet 1 g PO BIDWM Zoloft 100 mg Tablet 150 mg PO DAILY pantoprazole 40 mg Tablet,Delayed Release (Dr/Ec) 40 mg PO DAILY Humalog U-100 Insulin 100 unit/mL Solution See Rx Instructions .ROUTE .COMPLEX Rx Instructions: per sliding scale Lantus Solostar U-100 Insulin 100 unit/mL (3 mL) Insulin Pen 55 unit SUBCUT QAM Discharge Orders: Discharge ED (Routine); Ordered 12/22/21 Ordered By: Xavier Monique Discharge Diet: Usual diet Discharge Activity: Resume usual activity Patient Instructions: Abdominal Pain (ED), Opioid Safety Activity Restrictions/Additional Instructions: Follow-up with your primary care provider within the next week. 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
[2021-12-22 15:51] VITALS: BP 175/94; PULSE 63; RESP 22; O2SAT 97
[2021-12-22] MEDS: metoclopramide 5 mg/mL SDV 2 mL 10 MG IVP (15:52)
[2021-12-22 16:14] LABS: Basophils % 0.3 %; Eosinophils % 0.5 %; Hematocrit 44.6 % (37.0-47.0); Lymphocytes # 1.1 10^3/uL (0.8-4.8); Lymphocytes % 17.6 %; Mean Corpuscular HGB Conc 35.9 g/dL (30.0-36.0); Mean Corpuscular Hemoglobin 31.4 pg (28.0-34.0); Mean Corpuscular Volume 87.6 fl (81-99); Mean Platelet Volume 11.8 fL (7.4-10.4); Monocytes # 0.6 10^3/uL (0.2-0.9); Monocytes % 9.1 %; Neutrophils # 4.42 10^3/uL (1.8-7.7); Nucleated Red Blood Cells % 0 %; Platelet Count 111 10^3/cmm (130-400); Red Blood Count 5.09 10^6/uL (4.1-5.3); Red Cell Distribution Width 12.5 % (12.1-15.1); White Blood Count 6.1 10^3/uL (4.0-10.0)
[2021-12-22 16:29] LABS: Alanine Aminotransferase 37 U/L (0-33); Albumin Level 4.6 g/dL (3.5-5.2); Alkaline Phosphatase 87 U/L (35-105); Anion Gap 17.3 (5-19); Aspartate Amino Transferase 29 U/L (0-32); Blood Urea Nitrogen 19 mg/dL (6-20); Calcium 9.8 mg/dL (8.5-10.5); Carbon Dioxide 24 mmol/L (22-29); Chloride 103 mmol/L (98-107); Globulin 2.2 g/dL (1.3-4.6); Glomerular Filtration Rate 127.2 mL/min (90-130); Glucose 236 mg/dL (65-115); Lipase 20 U/L (13-60); Osmolality Calculated 302 mOsm/kg (285-295); Sodium 141 mmol/L (136-145); Total Bilirubin 0.9 mg/dL (0.15-1.2); Total Protein 6.8 g/dL (6.6-8.7)
[2021-12-22 16:35] LABS: Potassium 3.2 mmol/L (3.5-5.1)
[2021-12-22 16:36] LABS: Bilirubin Urine Neg (Negative); Blood Urine Trace (Negative); Glucose Urine UA 4+ (Normal); Ketones Urine 1+ (Negative); Leukocyte Esterase Urine Negative (Negative); Nitrate Urine Negative (Negative); Protein Urine Neg (Negative); Specific Gravity, Urine 1.015 (1.005-1.030); Urine Appearance SL Hazy (CLEAR); Urine Color Yellow (Yellow); Urobilinogen Urine 1 mg/dL (Negative); pH Urine 6 (5-7)
[2021-12-22 16:37] LABS: Add Urine Microscopic? YES
[2021-12-22 16:38] LABS: RBC Urine 0-4 /hpf (0-2); WBC Urine 0-4 /hpf (0-5)
[2021-12-22 16:39] LABS: Amorphous Sediment Urine 1+ /hpf; Bacteria Urine 1+ /hpf; Mucus Urine TRACE /hpf; Squamous Epithelial Cell Urine 0-4 /hpf (0-5)
[2021-12-22 16:40] LABS: Add Urine Culture? No
--- NOTE | 2021-12-22 16:58 | CTR_ITS ---
PROCEDURE INFORMATION: Exam: CT Abdomen And Pelvis Without Contrast Exam date and time: 12/22/2021 5:17 PM Age: 56 years old Clinical indication: Abdominal pain; Generalized; Prior surgery; Surgery date: 6+ months; Surgery type: Bg TECHNIQUE: Imaging protocol: Computed tomography of the abdomen and pelvis without contrast. Radiation optimization: All CT scans at this facility use at least one of these dose optimization techniques: automated exposure control; mA and/or kV adjustment per patient size (includes targeted exams where dose is matched to clinical indication); or iterative reconstruction. COMPARISON: CT abdomen pelvis w con* [id number] 11/19/2021 10:51 PM RADIATION DOSE METRICS: Total DLP (mGy-cm): 953.63 FINDINGS: Liver: Normal. No mass. Gallbladder and bile ducts: Normal. No calcified stones. No ductal dilation. Pancreas: Normal. No ductal dilation. Spleen: Normal. No splenomegaly. Adrenal glands: Normal. No mass. Kidneys and ureters: Right kidney cyst, negative for follow-up. Stomach and bowel: Diverticulosis without diverticulitis. Appendix: No evidence of appendicitis. Intraperitoneal space: Unremarkable. No free air. No significant fluid collection. Vasculature: Unremarkable. No abdominal aortic aneurysm. Lymph nodes: Unremarkable. No enlarged lymph nodes. Urinary bladder: Unremarkable as visualized. Reproductive: Unremarkable as visualized. Bones/joints: Unremarkable. No acute fracture. Soft tissues: Unremarkable. CT/CT abdomen pelvis con [id number] IMPRESSION: 1. Negative for acute inflammatory process in the abdomen or pelvis. 2. Diverticulosis without diverticulitis. 3. Right kidney cyst, negative for follow-up advised.
[2021-12-22 17:48] VITALS: BP 185/78; PULSE 57; O2SAT 96
[2021-12-22 18:23] VITALS: BP 169/86; PULSE 69; O2SAT 98
== END 2021-12-22 18:25 | disposition home or self-care (01) ==
PROVIDERS: Emergency Provider Family Medicine
DX: R10.9 Unspecified abdominal pain (principal); Z79.4 Long term (current) use of insulin; E11.9 Type 2 diabetes mellitus without complications; I10 Essential (primary) hypertension
CPT/HCPCS: 74176; 80053; 81001; 83690; 85025; 93005; 96374; 99285; J2765

== ENCOUNTER 2022-09-25 13:46 | Emergency (ER) | payer SELFPAY ==
[2022-09-25 13:50] VITALS: BP 182/89; PULSE 85; RESP 16; TEMP 36.6; O2SAT 95; BMI 33.6
--- NOTE | 2022-09-25 14:02 | W.ED.EAR ---
HPI - Ear Problem General: Chief complaint: Ear Stated complaint: Left side ear congestion/pain Time Seen by Provider: 09/25/22 13:55 Source: patient Mode of arrival: ambulatory Limitations: no limitations History of Present Illness: Patient is a 56-year-old female presents to ED today with complaint of pain in her left ear as well as hearing loss. Patient states about a week ago she put a Q-tip in her ear and thinks the cotton portion of the Q-tip got stuck. She has not had any bloody discharge from the ear. MD Complaint: ear pain and foreign body Location: left ear Duration: constant Severity: moderate Relieving factors: nothing Exacerbating factors: nothing Discharge from ear: no Associated symptoms: Reports ear or mastoid pain and hearing loss; Denies fever(s), headache(s) or tinnitus Treatment prior to arrival: none Review of Systems Const: Denies: fever(s), chills, body aches or fatigue Eyes: Denies: change in vision, blurry vision, photophobia, eye discomfort or eye discharge ENMT: Reports: ear or mastoid pain and change in hearing; Denies: ear discharge, tinnitus, disequilibrium, nasal discharge, nasal congestion, post nasal drip or sinus pain Resp: Denies: productive cough or non-productive cough Neuro: Denies: headache(s) All/Imm: Denies: facial swelling or seasonal rhinorrhea PFSH ED PFSH: Medical History Diabetes Gastroparesis Hypertension Hypertension Social History Smoking and tobacco status: never smoked Alcohol intake: never Substance/Drug Use: current Other substance/drug use details: +marijuana Physical Exam Const: COMMON NORMALS: no acute distress, average body habitus, patient oriented x3, no limitations, alert and well nourished GENERAL APPEARANCE: cooperative HENMT: COMMON NORMALS: normocephalic, atraumatic, external ears normal, Normal external nose present, Normal nasal mucous membranes and turbinates present, moist oral mucous membranes and oropharynx normal HEAD & SCALP: normal to inspection, normocephalic and atraumatic FACE & SINUS: normal facial exam and sinuses nontender NOSE: Normal external nose present and Normal nasal mucous membranes and turbinates present EXTERNAL EAR: Yes external ears normal, Yes mastoids normal and Yes no periauricular adenopathy EXTERNAL AUDITORY CANAL: Abnormal EAC present EAC laterality: left (fb noted compatible with cotton Q-tip) TYMPANIC MEMBRANE: unable to visualize TM (left secondary to fb) THROAT: posterior oropharynx normal, tonsils normal and uvula midline Eye: COMMON NORMALS: Equal, round and reactive pupils present, EOMs intact bilaterally and conjunctivae normal CONJUNCTIVA: Yes conjunctivae normal PUPIL: Yes Equal, round and reactive pupils present Neck/C-Spine: COMMON NORMALS: no lymphadenopathy Neuro: COMMON NORMALS: patient oriented x3 SENSORIUM/ORIENTATION: Yes alert Procedures FB Removal Ear Location: ear canal (L) Foreign Body Suspected: other (cotton qtip) TM intact pre-procedure: unable to visualize Foreign Body Removed: yes Foreign Body Removal Technique: irrigation Tympanic Membrane Intact Post Procedure: No (questionable small perforation vs abraded canal/TM) Patient Tolerated Procedure: well Complications: none Course Vital Signs: Vital signs: Vital Signs Temperature 97.9 F 09/25/22 13:50 Pulse Rate 85 09/25/22 13:50 Respiratory Rate 16 09/25/22 13:50 Blood Pressure 182/89 09/25/22 13:50 Pulse Oximetry 95 09/25/22 13:50 Oxygen Delivery Me thod Room Air 09/25/22 13:50 MDM - Ear Medical Decision Making Cotton matter was easily removed with irrigation. On repeat assessment she does have some bright red blood on her tympanic membrane unknown whether this is secondary to a small perforation vs an abraded TM/canal. Will place her on abx and have her follow up with ENT. Differential Diagnosis Likely foreign body in ear and ruptured TM Discharge Plan Discharge Patient Disposition: Home Clinical Impression: Acute foreign body of left ear canal Qualifiers: Encounter type: initial encounter Qualified Code(s): T16.2XXA - Foreign body in left ear, initial encounter Condition: Stable Prescriptions: New ciprofloxacin-dexamethasone [Ciprodex] 0.3-0.1 % drops,suspension 4 drp otic (ear) BID 7 Days Qty: 7.5 0RF amoxicillin-pot clavulanate 875-125 mg tablet 1 tab PO BID Qty: 14 0RF No Action sucralfate 1 gram Tablet 1 g PO BIDWM Zoloft 100 mg Tablet 150 mg PO DAILY pantoprazole 40 mg Tablet,Delayed Release (Dr/Ec) 40 mg PO DAILY Humalog U-100 Insulin 100 unit/mL Solution See Rx Instructions .ROUTE .COMPLEX Rx Instructions: per sliding scale Lantus Solostar U-100 Insulin 100 unit/mL (3 mL) Insulin Pen 55 unit SUBCUT QAM Reglan 10 mg tablet 10 mg PO Q6H PRN (Reason: nausea and vomiting) Qty: 20 0RF Discharge Orders: Discharge ED (Routine); Ordered 09/25/22 Ordered By: Kanchan Armendariz Patient Instructions: Ruptured Eardrum (ED) Coding Level of Care Code ED Research [employer] Development Researcher for Dahiana Santana
--- NOTE | 2022-09-25 15:12 | PC.NURSE ---
Addendum entered by Toya Miller LPN 09/25/22 15:13: also used a 20mL syringe Original Note: pt ear was irrigated using the catheter off of a 16 gauge IV, 500mL NS and a basin.
--- NOTE | 2022-09-26 08:23 | DCPLANNER ---
Addendum entered by Vero Saavedra 10/10/22 10:19: senior strategy manager received the following message from the ENT clinic regarding follow up appointment: lvm after 3 attempts to contact pt letter have been mailed On 10/03/22 @ 13:22 Es Claire Wrote To ENT Front Office LVM On 09/27/22 @ 13:30 Deepika Verdugo Wrote To ENT Front Office lvm Addendum entered by Vero Saavedra 10/08/22 10:50: senior strategy manager received the following message from the ENT clinic regarding follow up appointment: LVM On Fri 1:30p Sep 27, 2022 Deepika Verdugo (Covering For: ENT Front Office) Wrote To: ENT Front Office lvm Addendum entered by Vero Saavedra 10/01/22 09:54: senior strategy manager received the following message from the ENT clinic regarding follow up appointment: lvm Original Note: senior strategy manager had message to schedule a follow up appointment for patient with ENT. senior strategy manager sent patients information to the front office staff at ENT. Patients information will be printed and reviewed. Clinic will call patient with appointment information.
--- NOTE | 2022-09-26 09:48 | DCPLANNER ---
manager animal called patient due to no primary care physician - no answer at this time.
== END 2022-09-25 15:14 | disposition home or self-care (01) ==
PROVIDERS: Emergency Provider Physician Assistant
DX: T16.2XXA Foreign body in left ear, initial encounter (principal); X58.XXXA Exposure to other specified factors, initial encounter; Z79.4 Long term (current) use of insulin; E11.9 Type 2 diabetes mellitus without complications; I10 Essential (primary) hypertension
CPT/HCPCS: 69200; 99283

== ENCOUNTER 2023-01-09 13:28 | Emergency (ER) | payer SELFPAY ==
[2023-01-09] VITALS (7 sets, daily range): BP systolic 185–236; BP diastolic 93–117; PULSE 66–76; TEMP 36.7; O2SAT 95–98; BMI 33.6
--- NOTE | 2023-01-09 13:43 | ECG_ITS ---
[facility] Test Date: 2023-01-09 Pat Name: Ana Maria Hale Department: Room: Gender: Female [employer] Manager: : 1965 Requested By: Nicole Collins Order Number: [id number] Kylah MD: Satnam Patel M.D. Measurements Intervals [place] Rate: 59 P: 24 ME: 173 QRS: 13 QRSD: 102 T: 224 QT: 442 QTc: 441 Interpretive Statements SINUS BRADYCARDIA NONSPECIFIC ST & T-WAVE ABNORMALITY Compared to ECG 12/22/2021 14:51:30 T-wave abnormality now present Sinus rhythm no longer present Atrial abnormality no longer present Myocardial infarct finding no longer present Electronically Signed On 01-09-2023 19:25:47 CDT by Satnam Patel M.D. [id number]
--- NOTE | 2023-01-09 13:49 | CT_ITS ---
WS: [id number] CT HEAD NONCONTRAST HISTORY: Headache and dizziness. TECHNIQUE: Contiguous axial imaging performed through the brain in 2.5 mm imaging. Bone and soft tiss ue windows. Sagittal and coronal reformats reviewed. All CT scans at [facility] use at least one of these dose optimization techniques: automated exposure control; mA and/or kV adjustment per pa tient size (includes targeted exams where dose is matched to clinical indication); or iterative recon struction. DLP: 1045.78 mGy.cm COMPARISON: None available. No acute intracranial hemorrhage, midline shift or mass effect. No atrophy or prior infarcts or herniation. Prior lacunar infarct in the LEFT thalamus. Ventricles: Normal size with no hydrocephalus. No inferior displacement of the cerebellar tonsils. Paranasal sinuses: As visualized are clear. Mastoid air cells: Abnormal appearance of the mastoid air cells bilaterally. Large resection site inv olving the LEFT mastoid air cells. No history of prior surgery was provided but this does appear to b e a postsurgical site. There is a additional soft tissue filling the RIGHT mastoid air cells and exte nding into the inner ear which may represent a cholesteatoma. Calvarium and scalp: Skull is intact with no soft tissue edema or swelling. IMPRESSION: 1. No acute intracranial hemorrhage or edema. 2. Remote LEFT thalamic lacunar infarct. 3. Abnormal mastoid air cells. Large defect in the LEFT mastoid air cells. Probably representing prio r mastoidectomy although that history was not provided. Additional increased soft tissue in the RIGHT mastoid air cells extending into the inner ear may be a cholesteatoma.
--- NOTE | 2023-01-09 13:52 | W.ED.HA ---
HPI - Headache General: Chief Complaint: Headache Stated Complaint: headache, dizzy Time Seen by Provider: 01/09/23 13:42 Source: patient Mode of arrival: ambulatory Limitations: no limitations History of Present Illness: 57-year-old female with a history hypertension along with diabetes. States she has been out of her meds for a week her blood pressures been running high she has not checked her sugar but states that she believes it is likely high as well since she has not been taking her meds. Still the last 3 to 4 days she been having some left ear pain has also been having headache along with dizziness. She states her headaches are 5 out of 10 she states with any movement she feels dizzy and like the room spinning. She had issues with her left ear before and has had surgery on it as well. Denies any focal deficits. Denies any difficulty walking Associated symptoms: Reports nausea; Deny chest pain, fever(s), rash or vomiting Review of Systems Const: Denies: fever(s), chills, body aches or change in appetite Eyes: Denies: blurry vision or eye discomfort ENMT: Reports: ear or mastoid pain; Denies: throat pain or dental pain Card: Denies: chest pain Resp: Denies: dyspnea GI: Reports: nausea; Denies: abdominal pain, vomiting or diarrhea Musc: Denies: neck pain or back pain Skin/Breast: Denies: rash Neuro: Reports: headache(s) PFS ED PFSH: Medical History Diabetes Gastroparesis Hypertension Hypertension Social History Smoking and tobacco status: never smoked Alcohol intake: never Substance/Drug Use: current Other substance/drug use details: +marijuana Physical Exam Const: COMMON NORMALS: no acute distress, patient oriented x3 and healthy appearing HENMT: COMMON NORMALS: normocephalic and atraumatic HEAD & SCALP: normocephalic and atraumatic Eye: COMMON NORMALS: Equal, round and reactive pupils present and EOMs intact bilaterally PUPIL: Yes Equal, round and reactive pupils present Neck/C-Spine: COMMON NORMALS: full ROM and supple Chest: COMMONS NORMALS: normal inspection of the chest and normal palpation of entire chest wall Resp: COMMON NORMALS: normal respiratory effort, No retractions, No use of accessory muscles and clear to auscultation bilaterally AUSCULTATION: clear to auscultation bilaterally Cardio: COMMON NORMALS: regular rate, regular rhythm and No murmurs present (Cardio) RATE: regular rate RHYTHM: regular rhythm GI: COMMON NORMALS: Normal to inspection, nondistended, normoactive bowel sounds present, Soft to palpation, non-tender and no masses PALPATION: Yes Soft to palpation Extremity: COMMON NORMALS: normal to inspection and full ROM Neuro: COMMON NORMALS: patient oriented x3, moves all extremities and no focal motor deficits CRANIAL NERVES: Yes CN normal except as noted MOTOR EXAM: 5/5 motor strength present throughout Psych: COMMON NORMALS: mental status grossly normal, Normal thought process present and cooperative THOUGHT PROCESS: Normal thought process present Skin: COMMON NORMALS: no rashes or lesions noted and no wounds GENERAL SKIN EXAM: no rashes or lesions noted Course Vital Signs: Vital signs: Vital Signs Temperature 98.1 F 01/09/23 13:32 Pulse Rate 70 01/09/23 15:36 Blood Pressure 227/106 01/09/23 15:15 Pulse Oximetry 98 01/09/23 15:36 Oxygen Delivery Me thod Room Air 01/09/23 15:15 MDM - Headache Medical Decision Making Patient presents with headache along with some dizziness head CT here is normal she has no signs of a stroke here. Her symptoms resolved here after blood pressure improving with Antivert she has been noncompliant with her meds. We will refill her lisinopril along with insulin. She is to follow-up with PCP and return if worsening. Medical Records I reviewed the patient's medical records. Lab Data I reviewed the patient's lab results. 01/09/23 14:01 01/09/23 14: Laboratory Results WBC 5.49 10^3/uL (3.29-11.43) 01/09/23 14: RBC 5.19 10^6/uL (3.85-5.65) 01/09/23 14: Hgb 16.50 g/dL (11.27-16.99) 01/09/23 14: Hct 46.0 % (36-47) 01/09/23 14: MCV 88.6 fl (85-98) 01/09/23 14:01 MCH 31.8 pg (27-33) 01/09/23 14:01 MCHC 35.9 g/dL (30-55) 01/09/23 14:01 RDW 11.9 % (12.1-15.1) L 01/09/23 14:01 Plt Count 111 10^3/cmm (157-399) L 01/09/23 14:01 MPV 10.8 fL (7.4-10.4) H 01/09/23 14:01 Neut % (Auto) 71.0 % 01/09/23 14:01 Lymph % (Auto) 21.1 % 01/09/23 14:01 Edgar % (Auto) 6.2 % 01/09/23 14:01 Eos % (Auto) 0.9 % 01/09/23 14:01 Baso % (Auto) 0.4 % 01/09/23 14:01 Neut # (Auto) 3.90 10^3/uL (1.8-7.7) 01/09/23 14:01 Lymph # (Auto) 1.2 10^3/uL (0.8-4.8) 01/09/23 14:01 Edgar # (Auto) 0.3 10^3/uL (0.2-0.9) 01/09/23 14:01 Eos # (Auto) 0.1 10^3/uL (0.0-0.8) 01/09/23 14:01 Baso # (Auto) 0.0 10^3/uL (0.0-0.1) 01/09/23 14:01 Nucleated RBC % (auto) 0 % 01/09/23 14: Nucleated RBCs # 0.0 /100WBC 01/09/23 14:01 Sodium 137 mmol/L (136-145) 01/09/23 14:01 Potassium 3.7 mmol/L (3.5-5.1) 01/09/23 14:01 Chloride 101 mmol/L (98-107) 01/09/23 14:01 Carbon Dioxide 25 mmol/L (22-29) 01/09/23 14:01 Anion Gap 14.7 (5-19) 01/09/23 14:01 BUN 16 mg/dL (6-20) 01/09/23 14:01 Creatinine 0.5 mg/dL (0.5-0.9) 01/09/23 14:01 GFR Calculation 126.7 mL/min (90-130) 01/09/23 14:01 Glucose 292 mg/dL (65-115) H 01/09/23 14:01 POC Glucose 254 mg/dL (70-110) H 01/09/23 14:33 Calculated Osmolality 296 mOsm/kg (285-295) H 01/09/23 14:01 Calcium 9.0 mg/dL (8.5-10.5) 01/09/23 14:01 Total Bilirubin 0.9 mg/dL (0.15-1.2) 01/09/23 14:01 AST 17 U/L (0-32) 01/09/23 14:01 ALT 24 U/L (0-33) 01/09/23 14:01 Alkaline Phosphatase 101 U/L (35-105) 01/09/23 14:01 Total Protein 6.5 g/dL (6.6-8.7) L 01/09/23 14:01 Albumin 4.5 g/dL (3.5-5.2) 01/09/23 14:01 Globulin 2.0 g/dL (1.3-4.6) 01/09/23 14:01 EKG Data EKG 1: I personally reviewed and interpreted this EKG as follows: EKG interpretation date: 01/09/23 EKG interpretation time: 14:00 Interpretation: sinus alfredo hr [address] or t wave abnormalities qrs 102 qtc 442 Discharge Plan Discharge Patient Disposition: Home Clinical Impression: Hypertension, Headache, Dizziness Condition: Stable Prescriptions: New lisinopril 40 mg tablet 40 mg PO DAILY Qty: 30 0RF Continued Humalog U-100 Insulin 100 unit/mL Solution See Rx Instructions .ROUTE .COMPLEX Qty: 10 0RF Rx Instructions: per sliding scale Lantus Solostar U-100 Insulin 100 unit/mL (3 mL) Insulin Pen 20 unit SUBCUT QAM Qty: 9 0RF No Action sertraline [Zoloft] 100 mg Tablet 150 mg PO DAILY melatonin 10 mg Tablet 20 mg PO DAILY PRN (Reason: Sleep) Discharge Orders: Discharge ED (Routine); Ordered 01/09/23 Ordered By: Nicole Collins Discharge Diet: Advance as tolerated Discharge Activity: Resume usual activity Patient Instructions: Hypertension (ED), Dizziness (ED), General Headache (ED) Coding Level of Care Code ED Steamblaster for Dahiana Santana NIH stroke score NIHSS Level Of Consciousness - 1a: 0 Level Of Consciousness Questions - 1b: Both Correct Level Of Consciousness Commands - 1c: Both Correct Best Gaze - 2: Normal Visual Thurston - 3: No Visual Loss Facial Palsy - 4: Normal Motor Arm Right - 5: No Drift Motor Arm Left - 5: No Drift Motor Leg Right - 6: No Drift Motor Leg Left - 6: No Drift Limb Ataxia - 7: Absent Sensory - 8: Normal Best Language - 9: No Aphasia Dysarthia - 10: Normal Extinction And Inattention - 11: 0 Score Total Score: 0
[2023-01-09] MEDS: meclizine 25 mg tablet 50 MG PO (13:57)
[2023-01-09] MEDS: labetalol 5 mg/mL SDV 20mL 10 MG IVP (13:58)
[2023-01-09] MEDS: sodium chloride 0.9% 1,000 ML 999 ML IV (13:59)
[2023-01-09 14:16] LABS: Basophils % 0.4 %; Eosinophils # 0.1 10^3/uL (0.0-0.8); Eosinophils % 0.9 %; Lymphocytes # 1.2 10^3/uL (0.8-4.8); Lymphocytes % 21.1 %; Mean Corpuscular HGB Conc 35.9 g/dL (30-55); Mean Corpuscular Hemoglobin 31.8 pg (27-33); Mean Corpuscular Volume 88.6 fl (85-98); Mean Platelet Volume 10.8 fL (7.4-10.4); Monocytes # 0.3 10^3/uL (0.2-0.9); Monocytes % 6.2 %; Nucleated Red Blood Cells % 0 %; Platelet Count 111 10^3/cmm (157-399); Red Blood Count 5.19 10^6/uL (3.85-5.65); Red Cell Distribution Width 11.9 % (12.1-15.1); White Blood Count 5.49 10^3/uL (3.29-11.43)
[2023-01-09 14:37] LABS: Glucose Point of Care 254 mg/dL (70-110)
[2023-01-09 14:53] LABS: Alanine Aminotransferase 24 U/L (0-33); Albumin Level 4.5 g/dL (3.5-5.2); Alkaline Phosphatase 101 U/L (35-105); Anion Gap 14.7 (5-19); Aspartate Amino Transferase 17 U/L (0-32); Blood Urea Nitrogen 16 mg/dL (6-20); Carbon Dioxide 25 mmol/L (22-29); Chloride 101 mmol/L (98-107); Glomerular Filtration Rate 126.7 mL/min (90-130); Glucose 292 mg/dL (65-115); Osmolality Calculated 296 mOsm/kg (285-295); Potassium 3.7 mmol/L (3.5-5.1); Sodium 137 mmol/L (136-145); Total Bilirubin 0.9 mg/dL (0.15-1.2); Total Protein 6.5 g/dL (6.6-8.7)
[2023-01-09] MEDS: hyDRALAzine 20 mg/mL INJ 1 mL 10 MG IVP (15:08)
== END 2023-01-09 15:38 | disposition home or self-care (01) ==
PROVIDERS: Emergency Provider Emergency Medicine
DX: R51.9 Headache, unspecified (principal); I10 Essential (primary) hypertension; R42 Dizziness and giddiness; Z79.4 Long term (current) use of insulin; E11.9 Type 2 diabetes mellitus without complications
CPT/HCPCS: 36416; 70450; 80053; 82962; 85025; 93005; 96361; 96374; 96375; 99285; J0360; J3490; J7030; J8597

== ENCOUNTER 2023-04-11 17:50 | Emergency (ER) | payer SELFPAY ==
[2023-04-11] VITALS (7 sets, daily range): BP systolic 174–280; BP diastolic 78–138; PULSE 65–102; RESP 15–20; TEMP 36.7; O2SAT 92–98; BMI 32.8
--- NOTE | 2023-04-11 18:08 | ED_ITS ---
HPI - Abdominal Pain 2 General: Chief Complaint: Abdominal Pain Stated Complaint: abd pain Time Seen by Provider: 04/11/23 17:51 History of Present Illness: Patient presents to the ER with complaints of upper abdominal pain. She says she abdominal pain started yesterday when she was constipated. But this is lower patient says she took some stool softeners and had multiple bowel movements today and then the pain resolved down low but then it migrated up to her epigastric region. Patient does have a history of gastroparesis and this feels similar to episode of that in the past. Patient also complains of nausea and vomiting and patient is an insulin-dependent diabetic. Review of Systems 2 General: Reports: 10 or more systems reviewed and unremarkable except in HPI and below PFSH ED 2 PFSH: Medical History Hypertension Diabetes Hypertension Gastroparesis Social History Smoking and tobacco/nicotine status: never used tobacco/nicotine Alcohol intake: never Substance/Drug Use: current Other substance/drug use details: +marijuana Physical Exam 2 Const: COMMON NORMALS: no acute distress, average body habitus, patient oriented x3, no limitations, healthy appearing, alert and well nourished HENMT: COMMON NORMALS: normocephalic, atraumatic, hearing grossly normal bilaterally, external ears normal, Normal external nose present, moist oral mucous membranes and oropharynx normal HEAD & SCALP: normocephalic and atraumatic NOSE: Normal external nose present EXTERNAL EAR: Yes external ears normal Eye: COMMON NORMALS: Equal, round and reactive pupils present, EOMs intact bilaterally, conjunctivae normal and no scleral icterus CONJUNCTIVA: Yes conjunctivae normal PUPIL: Yes Equal, round and reactive pupils present Neck/C-Spine: COMMON NORMALS: no JVD Chest: COMMONS NORMALS: normal inspection of the chest and normal palpation of entire chest wall Resp: COMMON NORMALS: normal respiratory effort, No retractions, No use of accessory muscles and clear to auscultation bilaterally AUSCULTATION: clear to auscultation bilaterally Cardio: COMMON NORMALS: no JVD, regular rate, regular rhythm, S1 normal heart sound present, S2 normal heart sound present, No gallops present (Cardio), No clicks present (Cardio), No murmurs present (Cardio) and No rub (Cardio) R ATE: regular rate RHYTHM: regular rhythm HEART SOUNDS: S1 normal heart sound present and S2 normal heart sound present GI: COMMON NORMALS: Normal to inspection, nondistended, normoactive bowel sounds present, Soft to palpation, No hepatosplenomegaly present and no masses; negative for non-tender (Tender to palpate over epigastric region.) P ALPATION: Yes Soft to palpation and Yes No hepatosplenomegaly present Neuro: COMMON NORMALS: patient oriented x3 SENSORIUM/ORIENTATION: Yes alert Course 2 Vital Signs: Vital signs: Vital Signs Temperature 98.1 F 04/11/23 17:58 Pulse Rate 96 04/11/23 20:44 Respiratory Rate 16 04/11/23 20:44 Blood Pressure 177/96 04/11/23 20:44 Pulse Oximetry 93 04/11/23 20:44 Oxygen Delivery Me thod Room Air 04/11/23 20:06 MDM - Abdominal Pain Medical Decision Making Patient presents to the ER with abdominal pain and nausea. Patient had lab work done which is essentially unremarkable except possible urinary tract infection. Patient had a abdomen/pelvis CT scan with contrast that showed possible diverticulitis and possible gastric antral colitis. Patient was given Toradol and Reglan which control her nausea but not her pain. Patient was then given Dilaudid IV. Patient's blood pressure was remarkably high and she was given 20 of hydralazine and 20 of labetalol. Patient was given metronidazole and ciprofloxacin IV for her diverticulitis. Upon recheck patient was sleeping soundly. Patient be discharged home with antibiotics and is to follow-up with her family practice doctor within next 5 to 10 days. Differential Diagnosis Likely abdominal pain; Unlikely acute appendicitis, calculus of kidney, constipation, diverticulitis, endometriosis, gastroenteritis, pancreatitis or small bowel obstruction Medical Records I reviewed the patient's medical records. Lab Data I reviewed the patient's lab results. 04/11/23 17:35 04/11/23 18:52 Labs/Radiology: Radiology Impressions Abdomen/Pelvis CT 04/11/23 19:02 IMPRESSION: 1. Mid sigmoid colon wall thickening the area of several diverticula may reflect a diverticulitis. 2. Somewhat prominent fluid in the stomach, small bowel and ascending colon may reflect a gastroenterocolitis. 3. Mid ascending colon focal area of luminal narrowing and wall thickening, best seen series 5, image 28, consider correlation with colonoscopy to evaluate for an underlying lesion. 4. Large amount atherosclerotic calcification at the origins of the renal arteries bilaterally with suspected 80-90% luminal narrowing. 5. Coronary artery atherosclerotic calcifications. 6. Hepatic steatosis. 7. Small hiatal hernia. 8. Cholecystectomy. Laboratory Results WBC 10.55 10^3/uL (3.29-11.43) 04/11/23 17:35 RBC 5.65 10^6/uL (3.85-5.65) 04/11/23 17:35 Hgb 18.00 g/dL (11.27-16.99) H 04/11/23 17:35 Hct 49.0 % (36-47) H 04/11/23 17:35 MCV 86.7 fl (85-98) 04/11/23 17:35 MCH 31.9 pg (27-33) 04/11/23 17:35 MCHC 36.7 g/dL (30-55) 04/11/23 17:35 RDW 12.1 % (12.1-15.1) 04/11/23 17:35 Plt Count 127 10^3/cmm (157-399) L 04/11/23 17:35 MPV 11.3 fL (7.4-10.4) H 04/11/23 17:35 Neut % (Auto) 84.5 % 04/11/23 17:35 Lymph % (Auto) 10.2 % 04/11/23 17:35 [place] % (Auto) 4.6 % 04/11/23 17:35 Eos % (Auto) 0.0 % 04/11/23 17:35 Baso % (Auto) 0.3 % 04/11/23 17:35 Neut # (Auto) 8.91 10^3/uL (1.8-7.7) H 04/11/23 17:35 Lymph # (Auto) 1.1 10^3/uL (0.8-4.8) 04/11/23 17:35 [place] # (Auto) 0.5 10^3/uL (0.2-0.9) 04/11/23 17:35 Eos # (Auto) 0.0 10^3/uL (0.0-0.8) 04/11/23 17:35 Baso # (Auto) 0.0 10^3/uL (0.0-0.1) 04/11/23 17:35 Nucleated RBC % (auto) 0 % 04/11/23 17:35 Nucleated RBCs # 0.0 /100WBC 04/11/23 17:35 Sodium 137 mmol/L (136-145) 04/11/23 18:52 Potassium 3.9 mmol/L (3.5-5.1) 04/11/23 18:52 Chloride 99 mmol/L (98-107) 04/11/23 18:52 Carbon Dioxide 22 mmol/L (22-29) 04/11/23 18:52 Anion Gap 19.9 (5-19) H 04/11/23 18:52 BUN 16 mg/dL (6-20) 04/11/23 18:52 Creatinine 0.7 mg/dL (0.5-0.9) 04/11/23 18:52 GFR Calculation 85.9 mL/min (90-130) L 04/11/23 18:52 Glucose 307 mg/dL (65-115) H 04/11/23 18:52 Calculated Osmolality 297 mOsm/kg (285-295) H 04/11/23 18:52 Calcium 9.6 mg/dL (8.5-10.5) 04/11/23 18:52 Total Bilirubin 1.3 mg/dL (0.15-1.2) H 04/11/23 18:52 AST 16 U/L (0-32) 04/11/23 18:52 ALT 19 U/L (0-33) 04/11/23 18:52 Alkaline Phosphatase 82 U/L (35-105) 04/11/23 18:52 Total Protein 7.8 g/dL (6.6-8.7) 04/11/23 18:52 Albumin 5.0 g/dL (3.5-5.2) 04/11/23 18:52 Globulin 2.8 g/dL (1.3-4.6) 04/11/23 18:52 Lipase 15 U/L (13-60) 04/11/23 18:52 Urine Color Yellow (Yellow) 04/11/23 18:18 Urine Appearance Cloudy (CLEAR) A 04/11/23 18:18 Urine pH 5 (5-7) 04/11/23 18:18 Ur Specific [place] 1.025 (1.005-1.030) 04/11/23 18:18 Urine Protein 1+ (Negative) H 04/11/23 18:18 Urine Glucose (UA) 4+ (Normal) H 04/11/23 18:18 Urine Ketones 2+ (Negative) H 04/11/23 18:18 Urine Blood 2+ (Negative) H 04/11/23 18:18 Urine Nitrate Negative (Negative) 04/11/23 18:18 Urine Bilirubin Neg (Negative) 04/11/23 18:18 Urine Urobilinogen 1 mg/dL (Negative) H 04/11/23 18:18 Ur Leukocyte Esterase Trace (Negative) H 04/11/23 18:18 Urine RBC 0-4 /hpf (0-2) H 04/11/23 18:18 Urine WBC 25-40 /hpf (0-5) H 04/11/23 18:18 Ur Squamous Epith Cells 5-10 /hpf (0-5) H 04/11/23 18:18 Amorphous Sediment Not Reportable 04/11/23 18:18 Urine Bacteria 4+ /hpf (NONE) H 04/11/23 18:18 All radiology interpretation(s) finalized by discharge Discharge Plan Discharge Patient Disposition: Home Clinical Impression: Diverticulitis, Gastroenteritis Condition: Stable Prescriptions: No Action sertraline [Zoloft] 100 mg Tablet 150 mg PO DAILY melatonin 10 mg Tablet 20 mg PO DAILY PRN (Reason: Sleep) lisinopril 40 mg tablet 40 mg PO DAILY Qty: 30 0RF Humalog U-100 Insulin 100 unit/mL Solution See Rx Instructions .ROUTE .COMPLEX Qty: 10 0RF Rx Instructions: per sliding scale Lantus Solostar U-100 Insulin 100 unit/mL (3 mL) Insulin Pen 20 unit SUBCUT QAM Qty: 9 0RF Discharge Orders: Discharge ED (Routine); Ordered 04/11/23 Ordered By: Britton Brito Patient Instructions: Diverticulitis, Gastroenteritis (DC) Activity Restrictions/Additional Instructions: Please take all your medicine as directed. Please follow-up with your family practice doctor within next 7 [address] scan did show a possible abnormality in your colon which may be better looked at with a colonoscopy. Please talk to your family practice doctor about that scheduling this for further follow-up. Coding Level of Care Code ED Slug Press Operator for Dahiana Santana
[2023-04-11] MEDS: ketorolac 30 mg/mL INJ IVP (18:15)
[2023-04-11] MEDS: sodium chloride 0.9% 1,000 ML 999 ML IV (18:21)
[2023-04-11 18:22] LABS: Basophils % 0.3 %; Lymphocytes # 1.1 10^3/uL (0.8-4.8); Lymphocytes % 10.2 %; Mean Corpuscular HGB Conc 36.7 g/dL (30-55); Mean Corpuscular Hemoglobin 31.9 pg (27-33); Mean Corpuscular Volume 86.7 fl (85-98); Mean Platelet Volume 11.3 fL (7.4-10.4); Monocytes # 0.5 10^3/uL (0.2-0.9); Monocytes % 4.6 %; Neutrophils # 8.91 10^3/uL (1.8-7.7); Neutrophils % 84.5 %; Nucleated Red Blood Cells % 0 %; Platelet Count 127 10^3/cmm (157-399); Red Blood Count 5.65 10^6/uL (3.85-5.65); Red Cell Distribution Width 12.1 % (12.1-15.1); White Blood Count 10.55 10^3/uL (3.29-11.43)
[2023-04-11 18:40] LABS: Blood Urine 2+ (Negative); Glucose Urine UA 4+ (Normal); Ketones Urine 2+ (Negative); Protein Urine 1+ (Negative); Specific Gravity, Urine 1.025 (1.005-1.030); Urine Appearance Cloudy (CLEAR); Urine Color Yellow (Yellow); pH Urine 5 (5-7)
[2023-04-11 18:41] LABS: Add Urine Culture? Yes; Add Urine Microscopic? YES; Bacteria Urine 4+ /hpf; Bilirubin Urine Neg (Negative); Leukocyte Esterase Urine Trace (Negative); Nitrate Urine Negative (Negative); RBC Urine 0-4 /hpf (0-2); Urobilinogen Urine 1 mg/dL (Negative); WBC Urine 25-40 /hpf (0-5)
[2023-04-11] MEDS: metoclopramide 5 mg/mL SDV 2 mL 10 MG IVP (18:49)
[2023-04-11] MEDS: hyDRALAzine 20 mg/mL INJ 1 mL IVP (18:53)
--- NOTE | 2023-04-11 19:02 | CTR_ITS ---
PROCEDURE INFORMATION: Exam: CT Abdomen And Pelvis With Contrast Exam date and time: 04/11/2023 7:15 PM Age: 57 years old Clinical indication: Nausea and vomiting; Abdominal pain; Generalized; Prior surgery; Surgery date: 6+ months; Surgery type: Gb. Femoral yesica; Patient HX: Abd pain with n/v/d. ; Additional info: Abd pain, n/v/d TECHNIQUE: Imaging protocol: Computed tomography of the abdomen and pelvis with contrast. Radiation optimization: All CT scans at this facility use at least one of these dose optimization techniques: automated exposure control; mA and/or kV adjustment per patient size (includes targeted exams where dose is matched to clinical indication); or iterative reconstruction. Contrast material: OMNI 350; Contrast volume: 100 ml; Contrast route: INTRAVENOUS (IV); REPORTING DATA: Count of CT and Cardiac NM exams in prior 12 months: This patient has received [address] and 0 known cardiac nuclear medicine studies in the 12 months prior to the current study. COMPARISON: CT abdomen pelvis wo con [id number] 12/22/2021 5:17 PM RADIATION DOSE METRICS: Total DLP (mGy-cm): 948.03 FINDINGS: Coronary arteries: Coronary artery atherosclerotic calcifications. Diaphragm: Small hiatal hernia. Liver: Hepatic steatosis. Gallbladder and bile ducts: Cholecystectomy. Pancreas: Normal. No ductal dilation. Spleen: Normal. No splenomegaly. Adrenal glands: Normal. No mass. Kidneys and ureters: Normal. No hydronephrosis. Stomach and bowel: Mid sigmoid colon wall thickening the area of several diverticula may reflect a diverticulitis. Somewhat prominent fluid in the stomach, small bowel and ascending colon may reflect a gastroenterocolitis. Mid ascending colon focal area of luminal narrowing and wall thickening, best seen series 5, image 28, consider correlation with colonoscopy to evaluate for an underlying lesion. Appendix: No evidence of appendicitis. Intraperitoneal space: Unremarkable. No free air. No significant fluid collection. Vasculature: Large amount atherosclerotic calcification at the origins of the renal arteries bilaterally with suspected 80-90% luminal narrowing. Lymph nodes: Unremarkable. No enlarged lymph nodes. Urinary bladder: Unremarkable as visualized. Reproductive: Unremarkable as visualized. Bones/joints: Unremarkable. No acute fracture. Soft tissues: Unremarkable. CT/CT abdomen pelvis w con* [id number] IMPRESSION: 1. Mid sigmoid colon wall thickening the area of several diverticula may reflect a diverticulitis. 2. Somewhat prominent fluid in the stomach, small bowel and ascending colon may reflect a gastroenterocolitis. 3. Mid ascending colon focal area of luminal narrowing and wall thickening, best seen series 5, image 28, consider correlation with colonoscopy to evaluate for an underlying lesion. 4. Large amount atherosclerotic calcification at the origins of the renal arteries bilaterally with suspected 80-90% luminal narrowing. 5. Coronary artery atherosclerotic calcifications. 6. Hepatic steatosis. 7. Small hiatal hernia. 8. Cholecystectomy.
[2023-04-11] MEDS: HYDROmorphone 1 mg/mL INJ 1 mL IVP (19:10)
[2023-04-11] MEDS: iohexol 350 mg/mL 500 mL Btl (per mL) IV (19:19)
[2023-04-11 19:25] LABS: Alanine Aminotransferase 19 U/L (0-33); Alkaline Phosphatase 82 U/L (35-105); Anion Gap 19.9 (5-19); Aspartate Amino Transferase 16 U/L (0-32); Blood Urea Nitrogen 16 mg/dL (6-20); Calcium 9.6 mg/dL (8.5-10.5); Carbon Dioxide 22 mmol/L (22-29); Chloride 99 mmol/L (98-107); Globulin 2.8 g/dL (1.3-4.6); Glomerular Filtration Rate 85.9 mL/min (90-130); Glucose 307 mg/dL (65-115); Lipase 15 U/L (13-60); Osmolality Calculated 297 mOsm/kg (285-295); Potassium 3.9 mmol/L (3.5-5.1); Sodium 137 mmol/L (136-145); Total Bilirubin 1.3 mg/dL (0.15-1.2); Total Protein 7.8 g/dL (6.6-8.7)
[2023-04-11] MEDS: labetalol 5 mg/mL SDV 20mL 20 MG IVP (20:29)
[2023-04-11] MEDS: metroNIDAZOLE IV 500 MG/100 ML PREMIX 100 MG IV (21:05)
[2023-04-11] MEDS: lisinopril 20 mg Tablet 40 MG PO (21:20)
--- NOTE | 2023-04-11 21:20 | PC.NURSE ---
BLOOD CULTURES DRAWN AT 2053, IV ANTIBIOTICS STARTED AFTER CULTURES DRAWN PER MD ORDER.
[2023-04-11] MEDS: ciprofloxacin 500 mg Tablet PO (22:15)
== END 2023-04-11 22:28 | disposition home or self-care (01) ==
PROVIDERS: Emergency Provider Emergency Medicine
DX: K57.92 Diverticulitis of intestine, part unspecified, without perforation or abscess without bleeding (principal); K52.9 Noninfective gastroenteritis and colitis, unspecified; K44.9 Diaphragmatic hernia without obstruction or gangrene; K76.0 Fatty (change of) liver, not elsewhere classified
CPT/HCPCS: 36415; 74177; 80053; 81001; 83690; 85025; 87040; 87077; 87086; 87186; 96361; 96374; 96375; 99285; J0360; J1170; J1885; J2765; J3490; J7030; Q9967

== ENCOUNTER 2023-04-17 18:07 | Emergency (ER) | payer SELFPAY ==
[2023-04-17 18:08] VITALS: BP 219/124; PULSE 106; RESP 16; TEMP 36.6; O2SAT 91; BMI 32.8
--- NOTE | 2023-04-17 19:22 | CTR_ITS ---
PROCEDURE INFORMATION: Exam: CT Abdomen And Pelvis With Contrast Exam date and time: 04/17/2023 8:36 PM Age: 57 years old Clinical indication: Abdominal pain; Generalized; Prior surgery; Surgery date: 6+ months; Surgery type: Gb; Additional info: Ab pain TECHNIQUE: Imaging protocol: Computed tomography of the abdomen and pelvis with contrast. Radiation optimization: All CT scans at this facility use at least one of these dose optimization techniques: automated exposure control; mA and/or kV adjustment per patient size (includes targeted exams where dose is matched to clinical indication); or iterative reconstruction. Contrast material: OMNI 350; Contrast volume: 100 ml; Contrast route: INTRAVENOUS (IV); REPORTING DATA: Count of CT and Cardiac NM exams in prior 12 months: This patient has received 2 known CTs and 0 known cardiac nuclear medicine studies in the 12 months prior to the current study. COMPARISON: CT abdomen pelvis w con* [id number] 04/11/2023 7:15 PM RADIATION DOSE METRICS: Total DLP (mGy-cm): 911 FINDINGS: Lungs: The visualized lung bases are clear. Liver: Liver is large. Liver is steatotic. A few ill-defined hypodensities are too small to characterize, potentially areas of focal fatty infiltration. Gallbladder and bile ducts: Absent gallbladder. Pancreas: Unremarkable with no suspicious mass. No ductal dilation. Spleen: The spleen is not enlarged. No suspicious enhancing mass is noted. Adrenal glands: Normal. No mass. Kidneys and ureters: Small right renal 12 mm cyst. No enhancing renal mass or hydronephrosis. Other minute bilateral renal cysts. Stomach and bowel: Severe sigmoid diverticulosis. The colon is rather fecal filled. No small bowel obstruction, abscess or free air. Few small duodenal diverticula. Appendix: No evidence of appendicitis. Intraperitoneal space: Unremarkable. No free air. No suspicious fluid collection. Vasculature: Advanced diffuse vascular calcification noted. 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 No AAA. Lymph nodes: No enlarged lymph nodes. Urinary bladder: Unremarkable as visualized. Reproductive: Unremarkable as visualized. Bones/joints: Moderate spine DJD. Partially assessed right femur ORIF. Soft tissues: No acute or suspicious finding noted. CT/CT abdomen pelvis w con* [id number] IMPRESSION: 1. No small bowel obstruction, abscess or free air. 2. Multiple chronic findings above. COMMENTS: Consistent with the [employer]'s Incidental Findings Committee white paper (J Am Chapis Radiol 2018): Any incidental renal lesion less than 1 cm or classified as too small to characterize, or any incidental cystic renal lesion characterized as simple-appearing, is likely benign. No follow-up imaging is recommended for these lesions per consensus recommendations based on imaging criteria.
--- NOTE | 2023-04-17 19:27 | ED_ITS ---
HPI - Nausea/Vomiting/Diarrhea 2 General: Chief complaint: Nausea/Vomiting/Diarrhea Stated complaint: SOB\ABD Pain Time Seen by Provider: 04/17/23 19:03 Source: patient Mode of arrival: ambulatory Limitations: no limitations History of Present Illness: 57-year-old female states she had severe epigastric Roger pain last 2 days she also had nausea vomiting diarrhea she had a slight cough as well. She is very hypertensive here states she has not taken her blood pressure last 2 days because of her vomiting. She denies any fevers she rates her pain 8 out of 10 denies any worsening proving factors. Associated nausea: Yes Associated symtoms: Reports nausea; Denies chest pain or headache(s) Review of Systems 2 Const: Denies: fever(s), chills, body aches or change in appetite ENMT: Denies: throat pain or dental pain Card: Denies: chest pain Resp: Denies: dyspnea GI: Reports: abdominal pain, nausea and vomiting; Denies: diarrhea Musc: Denies: neck pain or back pain Skin/Breast: Denies: rash Neuro: Denies: headache(s) PFSH ED 2 PFSH: Medical History Hypertension Diabetes Hypertension Gastroparesis Social History Smoking and tobacco/nicotine status: never used tobacco/nicotine Alcohol intake: never Substance/Drug Use: current Other substance/drug use details: +marijuana Physical Exam 2 Const: COMMON NORMALS: no acute distress, patient oriented x3 and healthy appearing HENMT: COMMON NORMALS: normocephalic and atraumatic HEAD & SCALP: n ormocephalic and atraumatic Neck/C-Spine: COMMON NORMALS: full ROM and supple Chest: COMMONS NORMALS: normal inspection of the chest and normal palpation of entire chest wall Resp: COMMON NORMALS: normal respiratory effort, No retractions, No use of accessory muscles and clear to auscultation bilaterally AUSCULTATION: clear to auscultation bilaterally Cardio: COMMON NORMALS: regular rate, regular rhythm and No murmurs present (Cardio) RATE: regular rate RHYTHM: regular rhythm GI: COMMON NORMALS: Normal to inspection, nondistended, normoactive bowel sounds present, Soft to palpation and no masses PALPATION: Yes Soft to palpation and Yes Tenderness to palpation present (GI) (diffuse) Extremity: COMMON NORMALS: normal to inspection and full ROM Neuro: COMMON NORMALS: patient oriented x3, moves all extremities and no focal motor deficits Psych: COMMON NORMALS: mental status grossly normal, Normal thought process present and cooperative THOUGHT PROCESS: Normal thought process present Skin: COMMON NORMALS: no rashes or lesions noted and no wounds GENERAL SKIN EXAM: no rashes or lesions noted Course 2 Vital Signs: Vital signs: Vital Signs Temperature 97.9 F 04/17/23 18:08 Pulse Rate 67 04/17/23 20:13 Respiratory Rate 20 H 04/17/23 19:53 Blood Pressure 194/106 04/17/23 20:13 Pulse Oximetry 98 04/17/23 20:13 Oxygen Delivery Me thod Nasal Cannula 04/17/23 20:13 Oxygen Flow Rate 2 04/17/23 20:13 MDM - Nausea/Vomiting/Diarrhea Medical Decision Making Patient presents here with abdominal pain along with nausea and vomiting. She feels much improved here after pain meds and nausea medicine CT scan here is normal. She does have hypertension here likely due to not taking her meds her blood pressure here is improved as well troponins show no acute change she is to follow-up with PCP and return if worsening she understands agrees to plan. Medical Records I reviewed the patient's medical records. Lab Data I reviewed the patient's lab results. 04/17/23 19:40 04/17/23 19:40 Radiology Impressions Abdomen/Pelvis CT 04/17/23 19:22 IMPRESSION: 1. No small bowel obstruction, abscess or free air. 2. Multiple chronic findings above. COMMENTS: Consistent with the [employer]'s Incidental Findings Committee white paper (J Am Chapis Radiol 2018): Any incidental renal lesion less than 1 cm or classified as too small to characterize, or any incidental cystic renal lesion characterized as simple-appearing, is likely benign. No follow-up imaging is recommended for these lesions per consensus recommendations based on imaging criteria. Chest X-Ray 04/17/23 20:02 IMPRESSION: No acute findings. Laboratory Results WBC 10.15 10^3/uL (3.29-11.43) 04/17/23 19:40 RBC 5.80 10^6/uL (3.85-5.65) H 04/17/23 19:40 Hgb 18.10 g/dL (11.27-16.99) H 04/17/23 19:40 Hct 49.4 % (36-47) H 04/17/23 19:40 MCV 85.2 fl (85-98) 04/17/23 19:40 MCH 31.2 pg (27-33) 04/17/23 19:40 MCHC 36.6 g/dL (30-55) 04/17/23 19:40 RDW 11.9 % (12.1-15.1) L 04/17/23 19:40 Plt Count 140 10^3/cmm (157-399) L 04/17/23 19:40 MPV 10.8 fL (7.4-10.4) H 04/17/23 19:40 Neut % (Auto) 85.6 % 04/17/23 19:40 Lymph % (Auto) 9.2 % 04/17/23 19:40 [place] % (Auto) 4.7 % 04/17/23 19:40 Eos % (Auto) 0.0 % 04/17/23 19:40 Baso % (Auto) 0.1 % 04/17/23 19:40 Neut # (Auto) 8.69 10^3/uL (1.8-7.7) H 04/17/23 19:40 Lymph # (Auto) 0.9 10^3/uL (0.8-4.8) 04/17/23 19:40 [place] # (Auto) 0.5 10^3/uL (0.2-0.9) 04/17/23 19:40 Eos # (Auto) 0.0 10^3/uL (0.0-0.8) 04/17/23 19:40 Baso # (Auto) 0.0 10^3/uL (0.0-0.1) 04/17/23 19:40 Nucleated RBC % (auto) 0 % 04/17/23 19:40 Nucleated RBCs # 0.0 /100WBC 04/17/23 19:40 Sodium 132 mmol/L (136-145) L 04/17/23 19:40 Potassium 3.8 mmol/L (3.5-5.1) 04/17/23 19:40 Chloride 92 mmol/L (98-107) L 04/17/23 19:40 Carbon Dioxide 18 mmol/L (22-29) L 04/17/23 19:40 Anion Gap 25.8 (5-19) H 04/17/23 19:40 BUN 17 mg/dL (6-20) 04/17/23 19:40 Creatinine 0.8 mg/dL (0.5-0.9) 04/17/23 19:40 GFR Calculation 73.7 mL/min (90-130) L 04/17/23 19:40 Glucose 398 mg/dL (65-115) H 04/17/23 19:40 Calculated Osmolality 292 mOsm/kg (285-295) 04/17/23 19:40 Calcium 9.6 mg/dL (8.5-10.5) 04/17/23 19:40 Total Bilirubin 1.2 mg/dL (0.15-1.2) 04/17/23 19:40 AST 18 U/L (0-32) 04/17/23 19:40 ALT 24 U/L (0-33) 04/17/23 19:40 Alkaline Phosphatase 76 U/L (35-105) 04/17/23 19:40 Troponin T Baseline 37 ng/L (0-10) H 04/17/23 19:40 Delta Troponin T 3.68 ABS# (0-10) 04/17/23 21:28 Total Protein 7.5 g/dL (6.6-8.7) 04/17/23 19:40 Albumin 4.7 g/dL (3.5-5.2) 04/17/23 19:40 Globulin 2.8 g/dL (1.3-4.6) 04/17/23 19:40 Lipase 13 U/L (13-60) 04/17/23 19:40 Influenza Type A Ag negative (Negative) 04/17/23 19:38 Influenza Type B Ag negative (Negative) 04/17/23 19:38 SARS-CoV-2 Ag (Rapid) Negative (Negative) 04/17/23 19:38 All radiology interpretation(s) finalized by discharge EKG Data EKG 1: I personally reviewed and interpreted this EKG as follows: EKG interpretation date: 04/17/23 EKG interpretation time: 19:54 Interpretation: nsr hr [address] or t wave abnormalities qrs 97 qtc 447 EKG 2: I personally reviewed and interpreted this EKG as follows: EKG interpretation date: 04/17/23 EKG interpretation time: 21:26 Interpretation: nsr hr [address] or t wave abnormalities qrs 102 qtc 434 Discharge Plan Discharge Patient Disposition: Home Clinical Impression: Abdominal pain Qualifiers: Abdominal location: generalized Qualified Code(s): R10.84 - Generalized abdominal pain Hypertension Qualifiers: Hypertension type: unspecified Qualified Code(s): I10 - Essential (primary) hypertension Condition: Stable Prescriptions: New hydrocodone-acetaminophen 5-325 mg tablet 1 tab PO Q6H PRN (Reason: pain) Qty: 14 0RF ondansetron 4 mg tablet,disintegrating 4 mg PO Q6H PRN (Reason: nausea and vomiting) Qty: 14 0RF No Action sertraline [Zoloft] 100 mg Tablet 150 mg PO DAILY melatonin 10 mg Tablet 20 mg PO DAILY PRN (Reason: Sleep) lisinopril 40 mg tablet 40 mg PO DAILY Qty: 30 0RF Humalog U-100 Insulin 100 unit/mL Solution See Rx Instructions .ROUTE .COMPLEX Qty: 10 0RF Rx Instructions: per sliding scale Lantus Solostar U-100 Insulin 100 unit/mL (3 mL) Insulin Pen 20 unit SUBCUT QAM Qty: 9 0RF ciprofloxacin HCl 500 mg tablet 500 mg PO Q12H Qty: 20 0RF metronidazole 500 mg tablet 500 mg PO Q8H Qty: 30 0RF hydrocodone-acetaminophen 5-325 mg tablet 1 tab PO TID PRN (Reason: pain) Qty: 14 0RF Discharge Orders: Discharge ED (Routine); Ordered 04/17/23 Ordered By: Nicole Collins Discharge Diet: Advance as tolerated Discharge Activity: Resume usual activity Patient Instructions: Abdominal Pain (ED), Hypertension (ED) Coding Level of Care Code ED Clammer for Dahiana Santana
--- NOTE | 2023-04-17 19:27 | ECG_ITS ---
[facility] Test Date: 2023-04-17 Pat Name: Ana Maria Hale Department: Room: Gender: Female Billing Department Supervisor: : 1965 Requested By: Nicole Collins Order Number: [id number] Kylah MD: Radha Mejia M.D. Measurements Intervals [place] Rate: 79 P: 20 TX: 153 QRS: 2 QRSD: 97 T: 91 QT: 413 QTc: 474 Interpretive Statements SINUS RHYTHM POSSIBLE LEFT ATRIAL ENLARGEMENT [-0.1mV P-WAVE IN V1/V2] NONSPECIFIC T-WAVE ABNORMALITY Compared to ECG 01/09/2023 14:00:05 Sinus bradycardia no longer present T-wave abnormality still present Electronically Signed On 04-18-2023 19:20:48 BLOCK CUBER by Radha Mejia M.D. [id number]
[2023-04-17] MEDS: labetalol 5 mg/mL SDV 20mL 10 MG IVP (19:45)
[2023-04-17] MEDS: ondansetron 2 mg/ML SDV 2 mL 4 MG IVP (19:47)
[2023-04-17 19:48] VITALS: RESP 20
[2023-04-17] MEDS: morphine 4 mg/mL SDV 1 mL IVP (19:48)
[2023-04-17 19:53] VITALS: BP 224/115; PULSE 76; RESP 20; O2SAT 98
[2023-04-17 19:53] LABS: Basophils % 0.1 %; Hematocrit 49.4 % (36-47); Lymphocytes # 0.9 10^3/uL (0.8-4.8); Lymphocytes % 9.2 %; Mean Corpuscular HGB Conc 36.6 g/dL (30-55); Mean Corpuscular Hemoglobin 31.2 pg (27-33); Mean Corpuscular Volume 85.2 fl (85-98); Mean Platelet Volume 10.8 fL (7.4-10.4); Monocytes # 0.5 10^3/uL (0.2-0.9); Monocytes % 4.7 %; Neutrophils # 8.69 10^3/uL (1.8-7.7); Neutrophils % 85.6 %; Nucleated Red Blood Cells % 0 %; Platelet Count 140 10^3/cmm (157-399); Red Cell Distribution Width 11.9 % (12.1-15.1); White Blood Count 10.15 10^3/uL (3.29-11.43)
--- NOTE | 2023-04-17 20:02 | XRR_ITS ---
PROCEDURE INFORMATION: Exam: XR Chest Exam date and time: 04/17/2023 8:11 PM Age: 57 years old Clinical indication: Pain; Other: Abds; Additional info: Abd pain TECHNIQUE: Imaging protocol: Radiologic exam of the chest. Views: 1 view. COMPARISON: CT abdomen pelvis w con* [id number] 04/11/2023 7:15 PM FINDINGS: Lungs: Unremarkable. No consolidation. Pleural spaces: Unremarkable. No pleural effusion. No pneumothorax. Heart/Mediastinum: Unremarkable. No cardiomegaly. Bones/joints: Unremarkable. XR/XR chest 1V portable [id number] IMPRESSION: No acute findings.
[2023-04-17] MEDS: labetalol 5 mg/mL SDV 20mL 20 MG IVP (20:08)
[2023-04-17 20:13] VITALS: BP 194/106; PULSE 67; O2SAT 98
[2023-04-17 20:15] LABS: Alanine Aminotransferase 24 U/L (0-33); Albumin Level 4.7 g/dL (3.5-5.2); Alkaline Phosphatase 76 U/L (35-105); Anion Gap 25.8 (5-19); Aspartate Amino Transferase 18 U/L (0-32); Blood Urea Nitrogen 17 mg/dL (6-20); Calcium 9.6 mg/dL (8.5-10.5); Carbon Dioxide 18 mmol/L (22-29); Chloride 92 mmol/L (98-107); Globulin 2.8 g/dL (1.3-4.6); Glomerular Filtration Rate 73.7 mL/min (90-130); Glucose 398 mg/dL (65-115); Lipase 13 U/L (13-60); Osmolality Calculated 292 mOsm/kg (285-295); Potassium 3.8 mmol/L (3.5-5.1); Sodium 132 mmol/L (136-145); Total Bilirubin 1.2 mg/dL (0.15-1.2); Total Protein 7.5 g/dL (6.6-8.7)
[2023-04-17 20:19] LABS: Influenza A by IFA negative (Negative); Influenza B by IFA negative (Negative)
[2023-04-17 20:31] LABS: SARS Covid-2 Antigen Negative (Negative)
[2023-04-17] MEDS: iohexol 350 mg/mL 500 mL Btl (per mL) IV (20:38)
[2023-04-17] MEDS: hyDRALAzine 20 mg/mL INJ 1 mL 10 MG IVP (20:58)
[2023-04-17] MEDS: sodium chloride 0.9% 1,000 ML 999 ML IV (20:59)
--- NOTE | 2023-04-17 21:26 | ECG_ITS ---
[facility] Test Date: 2023-04-17 Pat Name: Ana Maria Hale Department: Room: Gender: Female Record Label Intern: : 1965 Requested By: Nicole Collins Order Number: [id number] Reading MD: Radha Mejia M.D. Measurements Intervals [place] Rate: 79 P: 21 MT: 154 QRS: 11 QRSD: 102 T: 97 QT: 399 QTc: 460 Interpretive Statements SINUS RHYTHM Poor R wave progression POSSIBLE LEFT ATRIAL ENLARGEMENT [-0.1mV P-WAVE IN V1/V2] NONSPECIFIC ST & T-WAVE ABNORMALITY Compared to ECG 04/17/2023 19:54:21 No significant changes Electronically Signed On 04-18-2023 19:22:42 DUPLICATION SPECIALIST by Radha Mejia M.D. [id number]
[2023-04-17] MEDS: HYDROcodone-acetaminophen 5-325 mg Tablet 1 TAB PO (21:33)
[2023-04-17 21:39] LABS: Troponin(5th) Baseline 37 ng/L (0-10)
[2023-04-17 22:01] LABS: Troponin 5 2HR 40.68 ng/L (0-10); Troponin 5 2HR Delta 3.68 ABS# (0-10)
[2023-04-17 22:26] VITALS: BP 168/85; PULSE 72; O2SAT 98
== END 2023-04-17 22:27 | disposition home or self-care (01) ==
PROVIDERS: Emergency Provider Emergency Medicine
DX: R10.84 Generalized abdominal pain (principal); I10 Essential (primary) hypertension; Z79.4 Long term (current) use of insulin; Z11.52 Encounter for screening for COVID-19; E11.9 Type 2 diabetes mellitus without complications
CPT/HCPCS: 71045; 74177; 80053; 83690; 84484; 85025; 87426; 87804; 93005; 96374; 96375; 96376; 99285; J0360; J2270; J2405; J3490; J7030; Q9967

== ENCOUNTER 2023-05-01 15:41 | Emergency (ER) | payer SELFPAY ==
[2023-05-01 15:51] VITALS: BP 214/141; PULSE 87; RESP 16; TEMP 36.7; O2SAT 94; BMI 33.6
--- NOTE | 2023-05-01 15:54 | ECG_ITS ---
[facility] Test Date: 2023-05-01 Pat Name: Ana Maria Hale Department: Room: Gender: Female Box Coverer Hand: : 1965 Requested By: Nicole Collins Order Number: [id number] Kylah MD: Dawson Hassan M.D. Measurements Intervals [place] Rate: 87 P: 52 TN: 156 QRS: 34 QRSD: 103 T: 81 QT: 376 QTc: 454 Interpretive Statements SINUS RHYTHM LEFT ATRIAL ENLARGEMENT [-0.15mV P-WAVE IN V1/V2] MODERATE ST DEPRESSION [0.05+ mV ST DEPRESSION] Compared to ECG 04/17/2023 21:26:39 ST (T wave) deviation now present Poor R-wave progression no longer present T-wave abnormality no longer present Electronically Signed On 05-01-2023 18:32:37 CASE RESOLUTION SPECIALIST by Dawson Hassan M.D. [id number]
--- NOTE | 2023-05-01 15:56 | XRR_ITS ---
PROCEDURE INFORMATION: Exam: XR Chest Exam date and time: 05/01/2023 4:20 PM Age: 57 years old Clinical indication: Pain; Angina pectoris; Additional info: Chest pain TECHNIQUE: Imaging protocol: Radiologic exam of the chest. Views: 1 view. COMPARISON: CR (CHEST, ) 04/17/2023 8:11 PM FINDINGS: Lungs: Unremarkable. No consolidation. Pleural spaces: Unremarkable. No pleural effusion. No pneumothorax. Heart/Mediastinum: Unremarkable. No cardiomegaly. Bones/joints: Unremarkable. XR/XR chest 1V portable [id number] IMPRESSION: No acute findings.
--- NOTE | 2023-05-01 15:58 | ED_ITS ---
HPI - Abdominal Pain 2 General: Chief Complaint: Abdominal Pain Stated Complaint: N/V, Abd pain, CP Time Seen by Provider: 05/01/23 15:55 History of Present Illness: Patient comes in with burning epigastric abdominal pain starting this evening. Patient has recurrent episodes. Patient has a history of gastroparesis. Patient was unable to tolerate oral fluids and was not able to take her blood pressure medicine. Patient appears in moderate pain. Patient has a history of diabetes mellitus. Patient has had a history of cholecystectomy. Associated Symptoms: Reports nausea and vomiting; Denies fever(s) Review of Systems 2 General: Reports: 10 or more systems reviewed and unremarkable except in HPI and below Const: Denies: fever(s) Card: Denies: chest pain Resp: Denies: dyspnea GI: Reports: abdominal pain, nausea and vomiting PFSH ED 2 PFSH: Medical History Hypertension Diabetes Hypertension Gastroparesis Social History Smoking and tobacco/nicotine status: never used tobacco/nicotine Alcohol intake: never Substance/Drug Use: current Other substance/drug use details: +marijuana Physical Exam 2 Const: COMMON NORMALS: alert HENMT: COMMON NORMALS: normocephalic HEAD & SCALP: normocephalic Resp: COMMON NORMALS: normal respiratory effort and clear to auscultation bilaterally AUSCULTATION: clear to auscultation bilaterally Cardio: COMMON NORMALS: regular rate and regular rhythm RATE: regular rate RHYTHM: regular rhythm GI: COMMON NORMALS: Soft to palpation AUSCULTATION: Yes normoactive bowel sounds PALPATION: Yes Soft to palpation and Yes Tenderness to palpation present (GI) (Epigastric) : COMMON NORMALS: Yes no CVA tenderness BLADDER/KIDNEY EXAM: Yes no CVA tenderness Back/Pelvis: COMMON NORMALS: no CVA tenderness Extremity: COMMON NORMALS: capillary refill normal Neuro: SENSORIUM/ORIENTATION: Yes alert Skin: COMMON NORMALS: turgor normal GENERAL SKIN EXAM: turgor normal Course 2 Vital Signs: Vital signs: Vital Signs Temperature 98.1 F 05/01/23 17:43 Pulse Rate 90 05/01/23 17:43 Respiratory Rate 18 05/01/23 17:43 Blood Pressure 148/64 05/01/23 17:43 Pulse Oximetry 94 05/01/23 17:43 Oxygen Delivery Me thod Room Air 05/01/23 17:13 MDM - Abdominal Pain Medical Decision Making 57-year-old female comes in today for complaints of epigastric abdominal pain with burning. Patient has had several evaluations in the ER for similar pain. On exam respirations were even lungs were clear to auscultation. Patient was in sinus rhythm. No ST elevation was noted on the EKG. Patient blood pressure was elevated 200+ systolic. Abdomen was soft with some epigastric tenderness. Normal active bowel sounds. No edema is noted in the extremities. Differential diagnosis includes not limited to CHF, gastritis, gastroparesis, GERD, pancreatitis, CBC was normal. CMP showed some mild hyponatremia at 132, blood glucose was 289, potassium was 4.0. Urinalysis was unremarkable. Chest x-ray was normal. Patient was medicated with Reglan, pantoprazole, and morphine. Patient had resolution of pain and discomfort. Hydralazine was given for high blood pressure which brought it down to 140s systolic. Patient had significant relief of pain and discomfort after treatment. Will continue patient on Reglan and pantoprazole. Suspect patient probably had exacerbation of her gastroparesis. Patient has had difficulty getting into primary care due to changes in her insurance and recently moved back to the area from [place]. Lab Data 05/01/23 16:20 05/01/23 16:20 Labs/Radiology: Radiology Impressions Chest X-Ray 05/01/23 15:56 IMPRESSION: No acute findings. Laboratory Results WBC 6.23 10^3/uL (3.29-11.43) 05/01/23 16:20 RBC 5.20 10^6/uL (3.85-5.65) 05/01/23 16:20 Hgb 16.40 g/dL (11.27-16.99) 05/01/23 16:20 Hct 44.7 % (36-47) 05/01/23 16:20 MCV 86.0 fl (85-98) 05/01/23 16:20 MCH 31.5 pg (27-33) 05/01/23 16:20 MCHC 36.7 g/dL (30-55) 05/01/23 16:20 RDW 11.8 % (12.1-15.1) L 05/01/23 16:20 Plt Count 139 10^3/cmm (157-399) L 05/01/23 16:20 MPV 10.2 fL (7.4-10.4) 05/01/23 16:20 Neut % (Auto) 80.8 % 05/01/23 16:20 Lymph % (Auto) 11.9 % 05/01/23 16:20 [place] % (Auto) 6.7 % 05/01/23 16:20 Eos % (Auto) 0.2 % 05/01/23 16:20 Baso % (Auto) 0.2 % 05/01/23 16:20 Neut # (Auto) 5.04 10^3/uL (1.8-7.7) 05/01/23 16:20 Lymph # (Auto) 0.7 10^3/uL (0.8-4.8) L 05/01/23 16:20 Marshall # (Auto) 0.4 10^3/uL (0.2-0.9) 05/01/23 16:20 Eos # (Auto) 0.0 10^3/uL (0.0-0.8) 05/01/23 16:20 Baso # (Auto) 0.0 10^3/uL (0.0-0.1) 05/01/23 16:20 Nucleated RBC % (auto) 0 % 05/01/23 16:20 Nucleated RBCs # 0.0 /100WBC 05/01/23 16:20 Sodium 132 mmol/L (136-145) L 05/01/23 16:20 Potassium 4.0 mmol/L (3.5-5.1) 05/01/23 16:20 Chloride 97 mmol/L (98-107) L 05/01/23 16:20 Carbon Dioxide 21 mmol/L (22-29) L 05/01/23 16:20 Anion Gap 18.0 (5-19) 05/01/23 16:20 BUN 15 mg/dL (6-20) 05/01/23 16:20 Creatinine 0.5 mg/dL (0.5-0.9) 05/01/23 16:20 GFR Calculation 126.7 mL/min (90-130) 05/01/23 16:20 Glucose 289 mg/dL (65-115) H 05/01/23 16:20 Calculated Osmolality 285 mOsm/kg (285-295) 05/01/23 16:20 Calcium 9.2 mg/dL (8.5-10.5) 05/01/23 16:20 Total Bilirubin 1.6 mg/dL (0.15-1.2) H 05/01/23 16:20 AST 19 U/L (0-32) 05/01/23 16:20 ALT 27 U/L (0-33) 05/01/23 16:20 Alkaline Phosphatase 66 U/L (35-105) 05/01/23 16:20 NT-Pro-B Natriuret Pep 788 pg/mL (0-125) H 05/01/23 16:20 Total Protein 6.5 g/dL (6.6-8.7) L 05/01/23 16:20 Albumin 4.2 g/dL (3.5-5.2) 05/01/23 16:20 Globulin 2.3 g/dL (1.3-4.6) 05/01/23 16:20 All radiology interpretation(s) finalized by discharge Discharge Plan Discharge Patient Disposition: Home Clinical Impression: Gastroparesis due to DM, Hypertension Gastritis Qualifiers: Gastritis type: unspecified gastritis Chronicity: unspecified Gastritis bleeding: without bleeding Qualified Code(s): K29.70 - Gastritis, unspecified, without bleeding Condition: Stable Prescriptions: New pantoprazole 40 mg tablet,delayed release (DR/EC) 40 mg PO DAILY 28 Days Qty: 28 0RF metoclopramide HCl 10 mg tablet 5 mg PO QID 30 Days Qty: 60 0RF Rx Instructions: take 30 minutes before meal, and at bedtime No Action hydrocodone-acetaminophen 5-325 mg tablet 1 tab PO Q6H PRN (Reason: pain) Qty: 14 0RF ondansetron 4 mg tablet,disintegrating 4 mg PO Q6H PRN (Reason: nausea and vomiting) Qty: 14 0RF sertraline [Zoloft] 100 mg Tablet 150 mg PO DAILY melatonin 10 mg Tablet 20 mg PO DAILY PRN (Reason: Sleep) lisinopril 40 mg tablet 40 mg PO DAILY Qty: 30 0RF Humalog U-100 Insulin 100 unit/mL Solution See Rx Instructions .ROUTE .COMPLEX Qty: 10 0RF Rx Instructions: per sliding scale Lantus Solostar U-100 Insulin 100 unit/mL (3 mL) Insulin Pen 20 unit SUBCUT QAM Qty: 9 0RF ciprofloxacin HCl 500 mg tablet 500 mg PO Q12H Qty: 20 0RF metronidazole 500 mg tablet 500 mg PO Q8H Qty: 30 0RF hydrocodone-acetaminophen 5-325 mg tablet 1 tab PO TID PRN (Reason: pain) Qty: 14 0RF Discharge Orders: Discharge ED (Routine); Ordered 05/01/23 Ordered By: Garrett Marroquin Discharge Diet: Advance as tolerated Discharge Activity: Increase activity as tolerated Patient Instructions: Gastritis (ED) Activity Restrictions/Additional Instructions: Take medication as directed. Follow-up with primary care in 1 week. Return to ED for new concerns. Coding Level of Care Code ED Eyeglass Lens Grinder for Dahiana Santana
[2023-05-01 16:36] LABS: Basophils % 0.2 %; Eosinophils % 0.2 %; Hematocrit 44.7 % (36-47); Lymphocytes # 0.7 10^3/uL (0.8-4.8); Lymphocytes % 11.9 %; Mean Corpuscular HGB Conc 36.7 g/dL (30-55); Mean Corpuscular Hemoglobin 31.5 pg (27-33); Mean Platelet Volume 10.2 fL (7.4-10.4); Monocytes # 0.4 10^3/uL (0.2-0.9); Monocytes % 6.7 %; Neutrophils # 5.04 10^3/uL (1.8-7.7); Neutrophils % 80.8 %; Nucleated Red Blood Cells % 0 %; Platelet Count 139 10^3/cmm (157-399); Red Cell Distribution Width 11.8 % (12.1-15.1); White Blood Count 6.23 10^3/uL (3.29-11.43)
[2023-05-01 16:37] VITALS: RESP 23; O2SAT 99
[2023-05-01] MEDS: pantoprazole 40 mg SDV IVP (16:37)
[2023-05-01] MEDS: hyDRALAzine 20 mg/mL INJ 1 mL 10 MG IVP (16:37)
[2023-05-01] MEDS: metoclopramide 5 mg/mL SDV 2 mL 10 MG IVP (16:37)
[2023-05-01] MEDS: morphine 4 mg/mL SDV 1 mL IVP (16:37)
[2023-05-01 16:45] VITALS: BP 179/89; PULSE 80; RESP 18; O2SAT 99
[2023-05-01 17:00] LABS: Alanine Aminotransferase 27 U/L (0-33); Albumin Level 4.2 g/dL (3.5-5.2); Alkaline Phosphatase 66 U/L (35-105); Aspartate Amino Transferase 19 U/L (0-32); Blood Urea Nitrogen 15 mg/dL (6-20); Calcium 9.2 mg/dL (8.5-10.5); Carbon Dioxide 21 mmol/L (22-29); Chloride 97 mmol/L (98-107); Globulin 2.3 g/dL (1.3-4.6); Glomerular Filtration Rate 126.7 mL/min (90-130); Glucose 289 mg/dL (65-115); NT Pro B Type Natriuretic Pept 788 pg/mL (0-125); Osmolality Calculated 285 mOsm/kg (285-295); Sodium 132 mmol/L (136-145); Total Bilirubin 1.6 mg/dL (0.15-1.2); Total Protein 6.5 g/dL (6.6-8.7)
[2023-05-01 17:13] VITALS: BP 179/91; PULSE 90; RESP 18; O2SAT 94
[2023-05-01 17:29] VITALS: BP 148/64
[2023-05-01 17:43] VITALS: BP 148/64; PULSE 90; RESP 18; TEMP 36.7; O2SAT 94
== END 2023-05-01 17:43 | disposition home or self-care (01) ==
PROVIDERS: Emergency Provider Nurse Practitioner Family
DX: E11.43 Type 2 diabetes mellitus with diabetic autonomic (poly)neuropathy (principal); K31.84 Gastroparesis; I10 Essential (primary) hypertension; K29.70 Gastritis, unspecified, without bleeding; Z79.4 Long term (current) use of insulin
CPT/HCPCS: 71045; 80053; 83880; 85025; 93005; 96374; 96375; 99285; C9113; J0360; J2270; J2765

== ENCOUNTER 2023-05-18 17:50 | Emergency (ER) | payer SELFPAY ==
[2023-05-18 17:50] VITALS: BMI 31.3
[2023-05-18 17:52] VITALS: BP 186/78; PULSE 73; RESP 16; TEMP 37.1; O2SAT 97
[2023-05-18 18:05] LABS: Basophils % 0.2 %; Eosinophils % 0.2 %; Lymphocytes # 1.5 10^3/uL (0.8-4.8); Lymphocytes % 24.5 %; Mean Corpuscular HGB Conc 35.7 g/dL (30-55); Mean Corpuscular Hemoglobin 31.3 pg (27-33); Mean Corpuscular Volume 87.7 fl (85-98); Mean Platelet Volume 10.8 fL (7.4-10.4); Monocytes # 0.4 10^3/uL (0.2-0.9); Monocytes % 7.1 %; Neutrophils % 67.7 %; Nucleated Red Blood Cells % 0 %; Platelet Count 124 10^3/cmm (157-399); Red Blood Count 5.59 10^6/uL (3.85-5.65); Red Cell Distribution Width 12.2 % (12.1-15.1); White Blood Count 5.91 10^3/uL (3.29-11.43)
--- NOTE | 2023-05-18 18:06 | ED_ITS ---
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 States the pain is sharp in nature and diffuse she had some nausea denies any vomiting denies any diarrhea denies any fevers. Rates her pain a 7 out of 10 currently Associated Symptoms: Denies chills, diarrhea, fever(s), nausea and vomiting Review of Systems 2 Const: Denies: fever(s), chills, body aches or change in appetite ENMT: Denies: throat pain or dental pain Card: Denies: chest pain Resp: Denies: dyspnea GI: Reports: abdominal pain; Denies: nausea, vomiting or diarrhea Musc: Denies: neck pain or back pain Skin/Breast: Denies: rash Neuro: Denies: headache(s) PFSH ED 2 PFSH: Medical History Hypertension Diabetes Hypertension Gastroparesis Social History Smoking and tobacco/nicotine status: never used tobacco/nicotine Alcohol intake: never Substance/Drug Use: current Other substance/drug use details: +marijuana Physical Exam 2 Const: COMMON NORMALS: no acute distress, patient oriented x3 and healthy appearing HENMT: COMMON NORMALS: normocephalic and atraumatic HEAD & SCALP: n ormocephalic and atraumatic Eye: COMMON NORMALS: Equal, round and reactive pupils present and EOMs intact bilaterally PUPIL: Yes Equal, round and reactive pupils present Neck/C-Spine: COMMON NORMALS: full ROM and supple Chest: COMMONS NORMALS: normal inspection of the chest Resp: COMMON NORMALS: normal respiratory effort Cardio: COMMON NORMALS: regular rate, regular rhythm and No murmurs present (Cardio) RATE: regular rate RHYTHM: regular rhythm GI: COMMON NORMALS: Normal to inspection, nondistended, normoactive bowel sounds present, Soft to palpation, non-tender and no masses PALPATION: Yes Soft to palpation Extremity: COMMON NORMALS: normal to inspection and full ROM Neuro: COMMON NORMALS: patient oriented x3, moves all extremities and no focal motor deficits Psych: COMMON NORMALS: mental status grossly normal, Normal thought process present and cooperative THOUGHT PROCESS: Normal thought process present Skin: COMMON NORMALS: no rashes or lesions noted and no wounds GENERAL SKIN EXAM: no rashes or lesions noted Course 2 Vital Signs: Vital signs: Vital Signs Temperature 98.7 F 05/18/23 17:52 Pulse Rate 110 H 05/18/23 19:02 Respiratory Rate 18 05/18/23 19:02 Blood Pressure 178/85 05/18/23 19:02 Pulse Oximetry 97 05/18/23 19:02 Oxygen Delivery Me thod Room Air 05/18/23 19:02 MDM - Abdominal Pain Medical Decision Making Patient presents here with abdominal pain she does have a UTI blood work is otherwise normal she has no signs acute abdomen we will place her on antibiotics she is follow-up with PCP and return if worsening Medical Records I reviewed the patient's medical records. Lab Data I reviewed the patient's lab results. 05/18/23 17:58 05/18/23 17:58 Labs/Radiology: Laboratory Results WBC 5.91 10^3/uL (3.29-11.43) 05/18/23 17:58 RBC 5.59 10^6/uL (3.85-5.65) 05/18/23 17:58 Hgb 17.50 g/dL (11.27-16.99) H 05/18/23 17:58 Hct 49.0 % (36-47) H 05/18/23 17:58 MCV 87.7 fl (85-98) 05/18/23 17:58 MCH 31.3 pg (27-33) 05/18/23 17:58 MCHC 35.7 g/dL (30-55) 05/18/23 17:58 RDW 12.2 % (12.1-15.1) 05/18/23 17:58 Plt Count 124 10^3/cmm (157-399) L 05/18/23 17:58 MPV 10.8 fL (7.4-10.4) H 05/18/23 17:58 Neut % (Auto) 67.7 % 05/18/23 17:58 Lymph % (Auto) 24.5 % 05/18/23 17:58 [place] % (Auto) 7.1 % 05/18/23 17:58 Eos % (Auto) 0.2 % 05/18/23 17:58 Baso % (Auto) 0.2 % 05/18/23 17:58 Neut # (Auto) 4.00 10^3/uL (1.8-7.7) 05/18/23 17:58 Lymph # (Auto) 1.5 10^3/uL (0.8-4.8) 05/18/23 17:58 [place] # (Auto) 0.4 10^3/uL (0.2-0.9) 05/18/23 17:58 Eos # (Auto) 0.0 10^3/uL (0.0-0.8) 05/18/23 17:58 Baso # (Auto) 0.0 10^3/uL (0.0-0.1) 05/18/23 17:58 Nucleated RBC % (auto) 0 % 05/18/23 17:58 Nucleated RBCs # 0.0 /100WBC 05/18/23 17:58 Sodium 137 mmol/L (136-145) 05/18/23 17:58 Potassium 3.7 mmol/L (3.5-5.1) 05/18/23 17:58 Chloride 98 mmol/L (98-107) 05/18/23 17:58 Carbon Dioxide 24 mmol/L (22-29) 05/18/23 17:58 Anion Gap 18.7 (5-19) 05/18/23 17:58 BUN 14 mg/dL (6-20) 05/18/23 17:58 Creatinine 0.7 mg/dL (0.5-0.9) 05/18/23 17:58 GFR Calculation 85.9 mL/min (90-130) L 05/18/23 17:58 Glucose 238 mg/dL (65-115) H 05/18/23 17:58 Calculated Osmolality 292 mOsm/kg (285-295) 05/18/23 17:58 Calcium 10.0 mg/dL (8.5-10.5) 05/18/23 17:58 Phosphorus 4.1 mg/dL (2.5-4.5) 05/18/23 17:58 Total Bilirubin 1.3 mg/dL (0.15-1.2) H 05/18/23 17:58 AST 18 U/L (0-32) 05/18/23 17:58 ALT 22 U/L (0-33) 05/18/23 17:58 Alkaline Phosphatase 71 U/L (35-105) 05/18/23 17:58 Total Protein 7.4 g/dL (6.6-8.7) 05/18/23 17:58 Albumin 4.6 g/dL (3.5-5.2) 05/18/23 17:58 Globulin 2.8 g/dL (1.3-4.6) 05/18/23 17:58 Urine Color Yellow (Yellow) 05/18/23 18:40 Urine Appearance Clear (CLEAR) 05/18/23 18:40 Urine pH 5 (5-7) 05/18/23 18:40 Ur Specific [place] 1.025 (1.005-1.030) 05/18/23 18:40 Urine Protein Trace (Negative) 05/18/23 18:40 Urine Glucose (UA) 2+ (Normal) H 05/18/23 18:40 Urine Ketones 1+ (Negative) H 05/18/23 18:40 Urine Blood Neg (Negative) 05/18/23 18:40 Urine Nitrate Positive (Negative) H 05/18/23 18:40 Urine Bilirubin Neg (Negative) 05/18/23 18:40 Urine Urobilinogen Norm mg/dL (Negative) 05/18/23 18:40 Ur Leukocyte Esterase Negative (Negative) 05/18/23 18:40 Urine RBC 5-10 /hpf (0-2) H 05/18/23 18:40 Urine WBC 0-4 /hpf (0-5) H 05/18/23 18:40 Ur Squamous Epith Cells 5-10 /hpf (0-5) H 05/18/23 18:40 Amorphous Sediment Not Reportable 05/18/23 18:40 Urine Bacteria 3+ /hpf (NONE) H 05/18/23 18:40 Urine Mucus Trace /hpf 05/18/23 18:40 No radiology studies performed this visit Discharge Plan Discharge Patient Disposition: Home Clinical Impression: Acute cystitis Qualifiers: Hematuria presence: without hematuria Qualified Code(s): N30.00 - Acute cystitis without hematuria Condition: Stable Prescriptions: New cephalexin 500 mg capsule 500 mg PO TID 7 Days Qty: 21 0RF ondansetron 4 mg tablet,disintegrating 4 mg PO Q6H PRN (Reason: nausea and vomiting) Qty: 14 0RF No Action hydrocodone-acetaminophen 5-325 mg tablet 1 tab PO Q6H PRN (Reason: pain) Qty: 14 0RF ondansetron 4 mg tablet,disintegrating 4 mg PO Q6H PRN (Reason: nausea and vomiting) Qty: 14 0RF pantoprazole 40 mg tablet,delayed release (DR/EC) 40 mg PO DAILY 28 Days Qty: 28 0RF metoclopramide HCl 10 mg tablet 5 mg PO QID 30 Days Qty: 60 0RF Rx Instructions: take 30 minutes before meal, and at bedtime sertraline [Zoloft] 100 mg Tablet 150 mg PO DAILY melatonin 10 mg Tablet 20 mg PO DAILY PRN (Reason: Sleep) lisinopril 40 mg tablet 40 mg PO DAILY Qty: 30 0RF Humalog U-100 Insulin 100 unit/mL Solution See Rx Instructions .ROUTE .COMPLEX Qty: 10 0RF Rx Instructions: per sliding scale Lantus Solostar U-100 Insulin 100 unit/mL (3 mL) Insulin Pen 20 unit SUBCUT QAM Qty: 9 0RF ciprofloxacin HCl 500 mg tablet 500 mg PO Q12H Qty: 20 0RF metronidazole 500 mg tablet 500 mg PO Q8H Qty: 30 0RF hydrocodone-acetaminophen 5-325 mg tablet 1 tab PO TID PRN (Reason: pain) Qty: 14 0RF Discharge Orders: Discharge ED (Routine); Ordered 05/18/23 Ordered By: Nicole Collins Discharge Diet: Advance as tolerated Discharge Activity: Resume usual activity Patient Instructions: Urinary Tract Infection in Women (ED) Coding Level of Care Code ED Senior Tax Analyst for Dahiana Santana
[2023-05-18 18:20] LABS: Alanine Aminotransferase 22 U/L (0-33); Albumin Level 4.6 g/dL (3.5-5.2); Alkaline Phosphatase 71 U/L (35-105); Anion Gap 18.7 (5-19); Aspartate Amino Transferase 18 U/L (0-32); Blood Urea Nitrogen 14 mg/dL (6-20); Carbon Dioxide 24 mmol/L (22-29); Chloride 98 mmol/L (98-107); Globulin 2.8 g/dL (1.3-4.6); Glomerular Filtration Rate 85.9 mL/min (90-130); Glucose 238 mg/dL (65-115); Osmolality Calculated 292 mOsm/kg (285-295); Phosphorus 4.1 mg/dL (2.5-4.5); Potassium 3.7 mmol/L (3.5-5.1); Sodium 137 mmol/L (136-145); Total Bilirubin 1.3 mg/dL (0.15-1.2); Total Protein 7.4 g/dL (6.6-8.7)
[2023-05-18] MEDS: morphine 4 mg/mL SDV 1 mL IVP (18:20)
[2023-05-18 18:45] VITALS: BP 156/71; PULSE 67; RESP 20; O2SAT 94
[2023-05-18 19:02] VITALS: BP 178/85; PULSE 110; RESP 18; O2SAT 97
[2023-05-18 19:17] LABS: Add Urine Microscopic? YES; Urine Appearance Clear (CLEAR); Urine Color Yellow (Yellow)
[2023-05-18 19:18] LABS: Add Urine Culture? Yes; Bacteria Urine 3+ /hpf; Bilirubin Urine Neg (Negative); Blood Urine Neg (Negative); Glucose Urine UA 2+ (Normal); Ketones Urine 1+ (Negative); Leukocyte Esterase Urine Negative (Negative); Mucus Urine TRACE /hpf; Nitrate Urine Positive (Negative); Protein Urine Trace (Negative); Specific Gravity, Urine 1.025 (1.005-1.030); Urobilinogen Urine Norm (Negative); WBC Urine 0-4 /hpf (0-5); pH Urine 5 (5-7)
[2023-05-18] MEDS: diphenhydrAMINE 50 mg/mL SDV 1mL 25 MG IVP (19:22)
[2023-05-18] MEDS: metoclopramide 5 mg/mL SDV 2 mL IVP (19:23)
[2023-05-18 19:30] VITALS: BP 179/93; PULSE 74; RESP 18; O2SAT 97
[2023-05-18] MEDS: cefTRIAXone 1,000 MG in sodium chloride 0.9% (plus) 50 ML 100 MG IV (19:31)
[2023-05-18 20:17] VITALS: BP 188/89; PULSE 75; RESP 16; O2SAT 97
== END 2023-05-18 20:18 | disposition home or self-care (01) ==
PROVIDERS: Emergency Provider Emergency Medicine
DX: N30.00 Acute cystitis without hematuria (principal)
CPT/HCPCS: 80053; 81001; 84100; 85025; 87077; 87086; 87186; 96374; 96375; 99284; J0696; J1200; J2270; J2765

== ENCOUNTER 2023-05-20 12:59 | Emergency (ER) | payer SELFPAY ==
[2023-05-20 13:04] VITALS: BP 231/99; PULSE 66; RESP 12; TEMP 36.9; O2SAT 96; BMI 31.3
[2023-05-20 13:36] LABS: Basophils % 0.6 %; Eosinophils % 0.2 %; Hematocrit 47.5 % (36-47); Lymphocytes % 18.2 %; Mean Corpuscular HGB Conc 35.6 g/dL (30-55); Mean Corpuscular Hemoglobin 31.3 pg (27-33); Mean Platelet Volume 10.3 fL (7.4-10.4); Monocytes # 0.3 10^3/uL (0.2-0.9); Neutrophils # 3.93 10^3/uL (1.8-7.7); Neutrophils % 75.2 %; Nucleated Red Blood Cells % 0 %; Platelet Count 112 10^3/cmm (157-399); Red Cell Distribution Width 12.1 % (12.1-15.1); White Blood Count 5.22 10^3/uL (3.29-11.43)
[2023-05-20 13:46] LABS: Alanine Aminotransferase 19 U/L (0-33); Albumin Level 4.4 g/dL (3.5-5.2); Alkaline Phosphatase 76 U/L (35-105); Anion Gap 17.9 (5-19); Aspartate Amino Transferase 15 U/L (0-32); Blood Urea Nitrogen 12 mg/dL (6-20); Calcium 9.5 mg/dL (8.5-10.5); Carbon Dioxide 21 mmol/L (22-29); Chloride 99 mmol/L (98-107); Globulin 2.7 g/dL (1.3-4.6); Glomerular Filtration Rate 102.7 mL/min (90-130); Glucose 307 mg/dL (65-115); Lipase 15 U/L (13-60); Osmolality Calculated 289 mOsm/kg (285-295); Potassium 3.9 mmol/L (3.5-5.1); Sodium 134 mmol/L (136-145); Total Bilirubin 1.2 mg/dL (0.15-1.2); Total Protein 7.1 g/dL (6.6-8.7)
== END 2023-05-20 15:40 | disposition left against medical advice (07) ==
PROVIDERS: Physician Assistant; Emergency Provider Family Medicine
DX: Z53.21 Procedure and treatment not carried out due to patient leaving prior to being seen by health care provider (principal)
CPT/HCPCS: 36415; 80053; 83690; 85025